=== PATIENT | female | born 1945 | race Caucasian/White ===

== ENCOUNTER 2016-11-03 10:18 | Emergency (ER) | payer OTHER ==
--- NOTE | 2016-11-03 11:03 | EKG Report ---
Test Performed on : 11/03/2016 10:50:29 AM Test Reason : Chest Pain Blood Pressure : / mmHG Vent. Rate : 071 BPM Atrial Rate : 072 BPM P-R Int : 000 ms QRS Dur : 092 ms QT Int : 424 ms P-R-T Axes : 000 007 053 degrees QTc Int : 460 ms Atrial fibrillation. Cannot rule out Anterior infarct (cited on or before 23-APR-2016) Abnormal ECG When compared with ECG of 23-APR-2016 07:00, Atrial fibrillation. has replaced Sinus rhythm. Vent. rate has decreased BY 50 BPM Unconfirmed Result
[2016-11-03 11:10] LABS: MANUAL DIFF NEEDED? NO
[2016-11-03 11:16] LABS: BASO% 0.5 % (0.0-0.8); EOS# 0.21 X1000 (0.0-0.7); EOS% 3.2 % (0.0-10.0); HEMATOCRIT 36.2 % (37.0-47.0); LYMPH# 1.75 X1000 (1.2-3.4); LYMPH% 26.7 % (20.5-51.1); MCH 28.2 PG (27-31); MCHC 33.1 g/dL (33-37); MCV 85.2 FL (81-99); MONO# 0.48 X1000 (0.11-0.59); MONO% 7.3 % (1.7-9.3); MPV 9.5 FL (7.4-10.4); NEUT% 62.3 % (42.2-75.2); PLT 237 X1000 (130-400); RBC 4.25 XMIL (4.2-5.4)
[2016-11-03 11:29] LABS: INR 0.92; PROTIME 9.4 Seconds (9.2-11.7); PTT 22.1 Seconds (22.0-36.0)
[2016-11-03 11:44] LABS: AGAP 7; ALBUMIN 3.8 g/dL (3.5-5.0); ALKALINE PHOSPHATASE 77 U/L (32-104); BUN 25 mg/dL (8-22); CALCIUM 9.3 mg/dL (8.8-10.2); CHLORIDE 96 mmol/L (98-107); CK PROFILE 56 U/L (24-173); COSMO 280; GOT 16 U/L (10-30); GPT 16 U/L (10-36); MAGNESIUM 1.7 mg/dL (1.5-2.7); POTASSIUM 3.6 mmol/L (3.5-5.1); SODIUM 136 mmol/L (136-145); TCO2 33 mmol/L (25-35); TOTAL BILIRUBIN 0.18 mg/dL (0.20-1.00); TOTAL PROTEIN 6.6 g/dL (6.3-8.3)
--- NOTE | 2016-11-03 11:53 | Diag Imaging Result Document ---
PROCEDURE NAME: CHEST-2 VIEWS - 11/03/2016 PA AND LATERAL RADIOGRAPH OF THE CHEST: COMPARISON: 04/23/2016. FINDINGS: The lungs are grossly clear. There is no discrete pleural fluid collection or evidence of pneumothorax. The cardiomediastinal silhouette and upper airway are grossly unremarkable. IMPRESSION: No evidence of acute chest pathology.
--- NOTE | 2016-11-03 14:42 | PROVIDER DOCUMENTATION ---
HPI-Chest Pain - General Source: patient - History of Present Illness-CP Location: reports: other (left anterior) Quality of Pain: reports: sharp Severity in ED: mild Onset/Duration: this morning Timing: gone now Aspirin Treatment Today: 81 mg x 1, provided at home Similar Symptoms Previously?: Yes Recently Seen Here or By Another Healthcare Provider: No <Armen Gongora - Last Filed: 11/03/16 16:56> <Kyle Blackburn - Last Filed: 11/03/16 16:57> - General Chief Complaint: Chest Pain Stated Complaint: chest pain Time Seen by Provider: 11/03/16 14:37 Allergies/Adverse Reactions: Patient Allergies Allergy/AdvReac Type Severity Reaction Status Date / Time codeine AdvReac VOMITING Verified 11/03/16 14:20 Home Medications: Home Medication List Medication Instructions Recorded Confirmed Last Taken Type Aspirin 325 mg PO DAILY 03/06/16 11/03/16 11/03/16 10:00 History Citalopram [Celexa] 20 mg PO DAILY 03/06/16 11/03/16 11/03/16 10:00 History Estrogens, Conjugated [Premarin] 0.625 mg PO HS 03/06/16 11/03/16 11/03/16 10: 00 History Losartan/Hydrochlorothiazide 1 each PO DAILY 03/06/16 11/03/16 11/03/16 10:00 History [Losartan-Hctz 100-12.5 mg Tab] Nortriptyline [Pamelor] 75 mg PO HS 03/06/16 11/03/16 11/03/16 10:00 History Potassium Chloride 10 meq PO DAILY 03/06/16 11/03/16 11/03/16 10:00 History Insulin Glargine [Lantus] 10 unit SUBQ QHS 04/23/16 11/03/16 11/02/16 22:00 History Insulin Glargine [Lantus] 22 unit SUBQ QAM 04/23/16 11/03/16 11/03/16 10:00 History Furosemide [Lasix] 20 mg PO DAILY #0 04/24/16 11/03/16 11/03/16 10:00 Rx Metoprolol [Lopressor] 75 mg PO BID #0 04/24/16 11/03/16 11/03/16 10:00 Rx - History of Present Illness-CP Nature of Presenting Problem: Presents with chf and afib with left anterior chest pain at 0930 this am resolved now but reports lasted 1 hours. States took rolaids with mild relief then resolved 1 hour later. Reports pain up left side of neck behind left ear and left side headache. Also reports resolved at this time. Denies sob, palpitations,n,v,. (Armen Gongoar) Review of Systems - Adult - REVIEW OF SYSTEMS - ADULT Constitutional: denies: chills, fever, fatique Eyes: reports: no symptoms reported Ears, Nose, Mouth & Throat: denies: ear pain, sinus problem, throat pain Cardiovascular: reports: chest pain. denies: irregular heart rate, orthopnea, syncope Respiratory: denies: cough, shortness of breath, wheezing Gastrointestinal: reports: no symptoms reported Genitourinary: reports: no symptoms reported Musculoskeletal: reports: no symptoms reported Integumentary: reports: no symptoms reported Neurological: reports: headache/migraines. denies: numbness, paresthesia, seizure Psychiatric: reports: no symptoms reported Endocrine: reports: no symptoms reported Hematologic/Lymphatic: reports: no symptoms reported Allergic/Immunologic: reports: no symptoms reported All Other Systems: Reviewed and Negative <Armen Gongora - Last Filed: 11/03/16 16:56> Past History - Adult - PAST MEDICAL HISTORY-ADULT Review of Records: reports: Nursing Assessment Review, Medications Reviewed Major Childhood Illnesses: reports: denies history Cardiovascular: reports: A-Fib, CHF, HTN, other (CHF) Musculoskeletal: reports: denies history Neurological: reports: denies history Psychiatric: reports: denies history - PRIOR SURGERIES/PROCEDURES Surgical/Procedure History: reports: cholecystectomy, hysterectomy, other ( thyroid nodule; ablation) - IMMUNIZATION STATUS Childhood Immunizations: See Nurse Assessment Flu Vaccine: See Nurse Assessment - SOCIAL HISTORY Smoking: denies Substance Use: none/never <Armen Gongora - Last Filed: 11/03/16 16:56> Physical Exam-General - PHYSICAL EXAM-ADULT Initial Vital Signs Reviewed: Yes - CONSTITUTIONAL General Appearance: appears well, alert, no apparent distress - EYES Eyes: PERRL/EOMI, pink conjunctivae - HEAD, EARS, NOSE, MOUTH & THROAT HENMT: moist mucous membranes, pharynx normal - NECK Neck: non-tender, full range of motion, supple, normal inspection - RESPIRATORY Respiratory: chest non-tender, lungs clear, normal breath sounds, no pleuratic chest pain, no respiratory distress, no accessory muscle use - CARDIOVASCULAR Cardiovascular: regular rate, rhythm, no edema, no gallop, no JVD, no murmur - GASTROINTESTINAL (ABDOMEN) Abdominal Exam: normal bowel sounds, non tender, soft, no organomegaly, no pulsatile mass - MUSCULOSKELETAL Extremity: normal range of motion, non-tender - SKIN Integumentary: normal color, normal turgor, warm/dry - PSYCHIATRIC Psych/Mental Status: normal mood/affect, normal thought content, normal thought process, oriented x 3 <Armen Gongora - Last Filed: 11/03/16 16:56> Progress - EKG 1 Time of EKG reading by physician:: 10:50 EKG Read and Signed by:: Kyle Blackburn EKG Interpretation (*Must complete 3 of following elements*): Abnormal Rate: 71 Rhythm: afib [place]: normal - XRAY 1 XRAY: Bilateral XRAY Study: Chest Impression: Normal XRAY Interpretation: no acute pathology <Armen Gongora - Last Filed: 11/03/16 16:56> <Kyle Blackburn - Last Filed: 11/03/16 16:57> - PLAN OF CARE/RESULTS Progress/Plan/Lab Results: Orders Category Date Time Status CHEST-2 VIEWS [RAD] Stat Exams 11/03/16 10:54 Completed CBC WITH ELECTRONIC DIFF [HEME] Stat Lab 11/03/16 10:57 Completed CK PROFILE [SP CHEM] Stat Lab 11/03/16 10:57 Completed CK PROFILE [SP CHEM] Stat Lab 11/03/16 14:37 Uncollected COMPREHENSIVE METABOLIC PANEL [CHEM] Stat Lab 11/03/16 10:57 Completed D-DIMER [CHEM] Stat Lab 11/03/16 10:57 Completed MAGNESIUM [CHEM] Stat Lab 11/03/16 10:57 Completed PRO B-NATRIURETIC PEPTIDE Stat Lab 11/03/16 10:57 Completed PROTIME WITH INR [COAG] Stat Lab 11/03/16 10:57 Completed PTT [COAG] Stat Lab 11/03/16 10:57 Completed TROPONIN T Stat Lab 11/03/16 10:57 Completed TROPONIN T Stat Lab 11/03/16 14:37 Uncollected EKG [EKG] Stat Ther 11/03/16 10:54 Draft EKG [EKG] Stat Ther 11/03/16 14:37 Ordered Vital Signs - 24 hr 11/03/16 10:52 Temperature 98.2 F Pulse Rate 73 Respiratory 18 Rate Blood Pressure 156/71 O2 Sat by Pulse 99 Oximetry Laboratory Tests 11/03/16 11/03/16 11/03/16 10:57 10:57 10:57 WBC 6.56 RBC 4.25 Hgb 12.0 Hct 36.2 L MCV 85.2 MCH 28.2 MCHC 33.1 RDW Std Deviation 13.4 Plt Count 237 MPV 9.5 Neut % (Auto) 62.3 Lymph % (Auto) 26.7 [place] % (Auto) 7.3 Eos % (Auto) 3.2 Baso % (Auto) 0.5 Neut # (Auto) 4.09 Lymph # (Auto) 1.75 [place] # (Auto) 0.48 Eos # (Auto) 0.21 Baso # (Auto) 0.03 PT INR PTT (Actin FS) D-Dimer 0.30 Sodium 136 Potassium 3.6 Chloride 96 L Carbon Dioxide 33 Anion Gap 7 BUN 25 H Creatinine 0.9 Estimated GFR/1.73 m2 > 60 BUN/Creatinine Ratio 28 Glucose 172 H Calculated Osmolality 280 Calcium 9.3 Magnesium 1.7 Total Bilirubin 0.18 L AST 16 ALT 16 Alkaline Phosphatase 77 Creatine Kinase 56 Troponin T Ima-V-Vtcethyrdxo Pept Total Protein 6.6 Albumin 3.8 Globulin 2.8 Albumin/Globulin Ratio 1.4 11/03/16 11/03/16 11/03/16 10:57 10:57 10:57 WBC RBC Hgb Hct MCV MCH MCHC RDW Std Deviation Plt Count MPV Neut % (Auto) Lymph % (Auto) [place] % (Auto) Eos % (Auto) Baso % (Auto) Neut # (Auto) Lymph # (Auto) [place] # (Auto) Eos # (Auto) Baso # (Auto) PT 9.4 INR 0.92 PTT (Actin FS) 22.1 D-Dimer Sodium Potassium Chloride Carbon Dioxide Anion Gap BUN Creatinine Estimated GFR/1.73 m2 BUN/Creatinine Ratio Glucose Calculated Osmolality Calcium Magnesium Total Bilirubin AST ALT Alkaline Phosphatase Creatine Kinase Troponin T < 0.010 Znc-T-Shytrlslesp Pept 184 Total Protein Albumin Globulin Albumin/Globulin Ratio Laboratory Tests 11/03/16 11/03/1611/03/17 10:57 10:57 10:57 WBC 6.56 RBC 4.25 Hgb 12.0 Hct 36.2 L MCV 85.2 MCH 28.2 MCHC 33.1 RDW Std Deviation 13.4 Plt Count 237 MPV 9.5 Neut % (Auto) 62.3 Lymph % (Auto) 26.7 [place] % (Auto) 7.3 Eos % (Auto) 3.2 Baso % (Auto) 0.5 Neut # (Auto) 4.09 Lymph # (Auto) 1.75 [place] # (Auto) 0.48 Eos # (Auto) 0.21 Baso # (Auto) 0.03 PT INR PTT (Actin FS) D-Dimer 0.30 Sodium 136 Potassium 3.6 Chloride 96 L Carbon Dioxide 33 Anion Gap 7 BUN 25 H Creatinine 0.9 Estimated GFR/1.73 m2 > 60 BUN/Creatinine Ratio 28 Glucose 172 H Calculated Osmolality 280 Calcium 9.3 Magnesium 1.7 Total Bilirubin 0.18 L AST 16 ALT 16 Alkaline Phosphatase 77 Creatine Kinase 56 Troponin T Wlj-L-Idbttxpcdcb Pept Total Protein 6.6 Albumin 3.8 Globulin 2.8 Albumin/Globulin Ratio 1.4 11/03/16 11/03/16 11/03/16 10:57 10:57 10:57 WBC RBC Hgb Hct MCV MCH MCHC RDW Std Deviation Plt Count MPV Neut % (Auto) Lymph % (Auto) [place] % (Auto) Eos % (Auto) Baso % (Auto) Neut # (Auto) Lymph # (Auto) [place] # (Auto) Eos # (Auto) Baso # (Auto) PT 9.4 INR 0.92 PTT (Actin FS) 22.1 D-Dimer Sodium Potassium Chloride Carbon Dioxide Anion Gap BUN Creatinine Estimated GFR/1.73 m2 BUN/Creatinine Ratio Glucose Calculated Osmolality Calcium Magnesium Total Bilirubin AST ALT Alkaline Phosphatase Creatine Kinase Troponin T < 0.010 Fyh-N-Ctnfyywbvuo Pept 184 Total Protein Albumin Globulin Albumin/Globulin Ratio 11/03/16 11/03/16 14:45 14:45 WBC RBC Hgb Hct MCV MCH MCHC RDW Std Deviation Plt Count MPV Neut % (Auto) Lymph % (Auto) [place] % (Auto) Eos % (Auto) Baso % (Auto) Neut # (Auto) Lymph # (Auto) [place] # (Auto) Eos # (Auto) Baso # (Auto) PT INR PTT (Actin FS) D-Dimer Sodium Potassium Chloride Carbon Dioxide Anion Gap BUN Creatinine Estimated GFR/1.73 m2 BUN/Creatinine Ratio Glucose Calculated Osmolality Calcium Magnesium Total Bilirubin AST ALT Alkaline Phosphatase Creatine Kinase 62 Troponin T < 0.010 Bko-G-Esqottqwhxd Pept Total Protein Albumin Globulin Albumin/Globulin Ratio (Armen Gongora) Departure - Departure Time of Disposition Order: 16:53 Certified Medical Emergency: Emergent <Armen Gongora - Last Filed: 11/03/16 16:56> - Departure Time of Disposition Order: 16:57 Certified Medical Emergency: Emergent <Kyle Blackburn - Last Filed: 11/03/16 16:57> - Departure DIAGNOSIS: Atypical chest pain Disposition: HOME 01 Condition: Stable Referrals: Dave Mcdaniel MD [Primary Care Provider] - Instructions: Nonspecific Chest Pain Attestation - Scribe Verification/Attestation Scribe:: Armen Gongora Acting as Scribe for:: Kyle Blackburn Scribe documention review:: This chart was documented by a scribe and accurately reflects the service the provider performed and the decisions made by the provider. <Armen Gongora - Last Filed: 11/03/16 16:56> Physician Attestation - Physician Attestation I, the provider, attest to the following statement:: Kyle Blackburn Physician documentation Attestation:: This documentation recorded by the scribe accurately reflects the service I personally performed and the decisions made by me. <Kyle Blackburn - Last Filed: 11/03/16 16:57>
--- NOTE | 2016-11-03 18:06 | Diag Imaging Result Document ---
PROCEDURE NAME: KNEE 3 VIEWS RIGHT - 11/03/2016 RIGHT KNEE THREE VIEWS: FINDINGS: No fracture. No dislocation. There are patella bone spurs and there is patellofemoral joint space narrowing. There is also bone spurring of the medial femoral condyle and medial tibial plateau. IMPRESSION: 1. No acute bony injury. 2. Mild arthritic changes.
[2016-11-03 18:23] VITALS: BP 166/93
== END 2016-11-03 18:23 | disposition home or self-care (01) ==
LOC: ED 10:18
DX: R07.89 Other chest pain (principal); R94.31 Abnormal electrocardiogram [ECG] [EKG]; M54.2 Cervicalgia; H92.02 Otalgia, left ear; R51 Headache; I48.91 Unspecified atrial fibrillation; I50.9 Heart failure, unspecified; I10 Essential (primary) hypertension; Z79.82 Long term (current) use of aspirin; Z79.4 Long term (current) use of insulin; Z79.899 Other long term (current) drug therapy
CPT/HCPCS: 71020; 80053; 82550; 83735; 83880; 84484; 85025; 85379; 85610; 85730; 93005; 99283

== ENCOUNTER 2018-12-25 11:52 | Inpatient (IN) ==
[2018-12-25 12:52] LABS: BE 8.7 mmoll (-2.0-2.0); BLOOD TYPE VENOUS; HCO3-(ACT) 29.6 mmoll (22-27); PCO2(98.6) 58 mmHg (40-60); PO2(98.6) 18 mmHg (30-55); SAMPLE BLOOD; SAO2 31.1 % (40.0-85.0)
[2018-12-25 13:07] LABS: BILIRUBIN URINE NEGATIVE (NEGATIVE); BLOOD URINE NEGATIVE (NEGATIVE); CLARITY CLEAR (CLEAR); COLOR YELLOW; GLUCOSE URINE NEGATIVE (NEGATIVE); KETONE URINE NEGATIVE (NEGATIVE); LEUKOCYTES URINE NEGATIVE (NEGATIVE); NITRITE URINE NEGATIVE (NEGATIVE); PH URINE 6.5; PROTEIN URINE NEGATIVE (NEGATIVE); UROBILINOGEN URINE NORMAL
[2018-12-25 13:16] LABS: BASO# 0.04 X1000 (0.0-0.2); BASO% 0.5 % (0.0-0.8); EOS# 0.25 X1000 (0.0-0.7); EOS% 3.2 % (0.0-10.0); HEMATOCRIT 37.9 % (37.0-47.0); HEMOGLOBIN 12.6 g/dL (12.0-16.0); IMM GRAN# 0.01 X1000 (0.0-0.04); IMM GRAN% 0.1 % (0.0-0.5); LYMPH# 1.83 X1000 (1.2-3.4); LYMPH% 23.6 % (20.5-51.1); MCH 27.3 PG (27-31); MCHC 33.2 g/dL (33-37); MONO# 0.64 X1000 (0.11-0.59); MONO% 8.2 % (1.7-9.3); MPV 10.1 FL (7.4-10.4); NEUT% 64.4 % (42.2-75.2); PLT 250 X1000 (130-400); RBC 4.62 XMIL (4.2-5.4); RDW 14.1 % (11.5-14.5); WBC 7.77 X1000 (4.8-10.8)
[2018-12-25 13:23] LABS: UR AMPHETAMINES QUAL NONE DETECTED (NONE DETECT); UR BARBITUATES QUAL NONE DETECTED (NONE DETECT); UR BENZODIAZEPIN QUAL PRESUMPTIVE POSITIVE (NONE DETECT); UR CANNABINOIDS QUAL NONE DETECTED (NONE DETECT); UR COCAINE QUAL NONE DETECTED (NONE DETECT); UR METHADONE QUAL NONE DETECTED (NONE DETECT); UR METHAMPHETAMINE QUAL NONE DETECTED (NONE DETECT); UR OPIATES QUAL NONE DETECTED (NONE DETECT); UR OXYCODONE QUAL NONE DETECTED (NONE DETECT); UR PCP QUAL NONE DETECTED (NONE DETECT); UR PROPOXYPHENE QUAL NONE DETECTED (NONE DETECT); UR TCA QUAL NONE DETECTED (NONE DETECT); URINE BACTERIA NEGATIVE /HFP; URINE CAST NONE SEEN /LPF; URINE CRYSTAL NONE SEEN /HPF; URINE EPITHELIAL CELLS <10 /HPF (<10); URINE RBC <10 /HPF (<10); URINE SOURCE CATH; URINE WBC <10 /HPF (<10); URINE YEAST NONE SEEN /HPF
[2018-12-25 13:31] LABS: AGAP 14; ALBUMIN 3.6 g/dL (3.5-5.0); ALKALINE PHOSPHATASE 86 U/L (32-104); BUN 18 mg/dL (8-22); CALCIUM 8.9 mg/dL (8.8-10.2); CHLORIDE 99 mmol/L (98-107); COSMO 284; CREATININE 0.8 mg/dL (0.5-0.9); ESTIMATED GFR > 60; GLUCOSE 80 mg/dL (70-104); GOT 23 U/L (10-30); GPT 16 U/L (10-36); POTASSIUM 3.5 mmol/L (3.5-5.1); SODIUM 142 mmol/L (136-145); TCO2 30 mmol/L (25-35); TOTAL PROTEIN 7.1 g/dL (6.3-8.3)
--- NOTE | 2018-12-25 13:47 | Diag Imaging Result Doc PS360 ---
EXAM : CT HEAD/C-SPINE W/O CONTRAST HISTORY: head injury/pain TECHNIQUE: 1. CT head without contrast 2. CT cervical spine without contrast COMPARISON: PET compared to 12/16/2018 FINDINGS: Head: No parenchymal hemorrhage. No epidural or subdural hematoma. No subarachnoid hemorrhage. There is atrophy of chronic microvascular ischemic changes. No mass identified on this noncontrasted exam. No hydrocephalus. No skull fracture. Cervical spine: Mild scoliosis. No precervical soft tissue swelling. No subluxation. No fracture. Mild degenerative spine changes. There is a large complex nodule containing calcification in the left lobe of the thyroid. IMPRESSION: Head: No hemorrhage. No injury. Cervical spine: No acute fracture. This exam was performed using automated exposure control, adjustment of mA or kV according to patient size, and/or use of iterative reconstruction technique. Electronically signed by Corbin Keith 12/25/2018 1:44 PM
--- NOTE | 2018-12-25 15:23 | PROVIDER DOCUMENTATION ---
This chart was entered by Andreina Chavis Scribe, acting as scribe for Tom Gongora MD. HPI-General Adult - General Chief Complaint: Altered Mental Status Stated Complaint: AMS/parasites Time Seen by Provider: 12/25/18 12:11 Source: patient, EMS (first response) Unable to obtain history due to:: altered Allergies/Adverse Reactions: Patient Allergies Allergy/AdvReac Type Severity Reaction Status Date / Time codeine AdvReac Intermediate VOMITING Verified 12/16/18 14:23 meperidine [From Demerol] AdvReac Intermediate NAUSEA/VOMI Verified 12/16/18 14:23 TING Home Medications: Home Medication List Medication Instructions Recorded Confirmed Last Taken Type Aspirin 81 mg PO DAILY 03/06/16 12/16/18 12/16/18 07:00 History Citalopram [Celexa] 20 mg PO DAILY 03/06/16 12/16/18 12/15/18 07:00 History Estrogens, Conjugated [Premarin] 0.625 mg PO HS 03/06/16 12/16/18 12/15/18 21:00 History Losartan/Hydrochlorothiazide 1 each PO DAILY 03/06/16 12/16/18 01/31/18 History [Losartan-Hctz 100-12.5 mg Tab] Potassium Chloride 10 meq PO DAILY 03/06/16 12/16/18 12/16/18 07:00 History Furosemide [Lasix] 40 mg PO DAILY 04/15/17 12/16/18 12/16/18 07:00 History Metoprolol [Lopressor] 50 mg PO BID 06/06/17 12/16/18 12/16/18 07:00 History Ranitidine [Zantac] 150 mg PO BID 06/06/17 12/16/18 12/16/18 07:00 History Insulin Glargine [Basaglar] 10 units SQ QHS 01/31/18 12/16/18 01/30/18 History Insulin Glargine [Basaglar] 22 units SQ QAM 01/31/18 12/16/18 12/16/18 07:00 History Albuterol Sulfate [Proair Hfa] 8.5 gm INHALATION PRN PRN 12/16/18 12/16/18 Unknown History Fluticasone/Salmet 100/50 INH 14 puff .SEE ORDER 12/16/18 Unknown History [Advair 100/50 Diskus] Meloxicam [Mobic] 15 mg PO QHS 12/16/18 12/16/18 Unknown History Solifenacin [Vesicare] 10 mg PO QHS 12/16/18 12/16/18 Unknown History - History of Present Illness -Gen Adult Nature of Presenting Problems: 73 yowf presents to the ed via ems (first response) from [facility]. pt is being sent to ed for AMS and sts pt has scabies and lice that [facility] has not been able to get rid of. pt on exam has mumbling speech and is not making since. pt does have a brief on and multiple brusises on rt elbow and left arm but full rom of both. PT'S ADULT SONE AND HER SISTER TELL ME PT HAS BEEN MILDLY SCHIOPHRENIC FOR >YEARS. RAPID DECLINE ING MENTAL FUNCTIONA ND INCREASE IN HALLUCINATIONS AND DELUTIONS PROGRESSIVELY WORSE OVER PAST THREE WEEKS AND EVEN WORSE PAST FEW DAYS. PT WAS KEEPING HER OWN HOUSE 1 MONTH AGO. NOW DOES NOT COMPREHEND PERSON, PLACE , SITUATION OR RESPOND TO VERBAL PROMPTS. Location of Pain/Injury: reports: none Pain Radiation: reports: no radiation Quality of Pain: reports: none Severity: reports: moderate (ams) Onset/Duration: reports: unsure Context/Activities at Onset: reports: light activity Modifying Factors: improves with: nothing Associated Symptoms: reports: headaches, other (ams). denies: back/neck pain, chest pain, cough, diarrhea, nausea, vomiting Review of Systems - Adult - REVIEW OF SYSTEMS - ADULT Constitutional: denies: chills, fever Eyes: reports: no symptoms reported Ears, Nose, Mouth & Throat: reports: no symptoms reported Cardiovascular: denies: chest pain, palpitations Respiratory: denies: shortness of breath, wheezing Gastrointestinal: denies: abdominal pain, diarrhea, nausea, vomiting Genitourinary: reports: see HPI, incontinence Musculoskeletal: reports: no symptoms reported Integumentary: reports: no symptoms reported Neurological: reports: see HPI, other (mumbling speech). denies: dizziness/vertigo, headache/migraines, seizure Psychiatric: reports: no symptoms reported Endocrine: reports: no symptoms reported Hematologic/Lymphatic: reports: no symptoms reported Allergic/Immunologic: reports: no symptoms reported All Other Systems: Reviewed and Negative Past History - Adult - PAST MEDICAL HISTORY-ADULT Review of Records: reports: Nursing Assessment Review, Medications Reviewed Major Childhood Illnesses: reports: denies history Cardiovascular: reports: A-Fib, CHF, HTN, other (CHF) Respiratory: reports: denies history Gastrointestinal: reports: denies history Obstetrical/Gynecological: reports: denies history Genitourinary: reports: denies history Musculoskeletal: reports: denies history Hand Dominance: Right Handed Neurological: reports: denies history Psychiatric: reports: denies history Endocrine/Immune: reports: denies history Other Conditions: reports: denies history - PRIOR SURGERIES/PROCEDURES Surgical/Procedure History: reports: cholecystectomy, hysterectomy, orthopedic (extremity), other (thyroid nodule; ablation) - IMMUNIZATION STATUS Childhood Immunizations: See Nurse Assessment Flu Vaccine: See Nurse Assessment - FAMILY HISTORY Family History: reviewed, not pertinent - SOCIAL HISTORY Smoking: denies Substance Use: denies Living Situation: care facility Physical Exam-General - PHYSICAL EXAM-ADULT Initial Vital Signs Reviewed: Yes - CONSTITUTIONAL General Appearance: alert, no apparent distress, obese - EYES Eyes: PERRL/EOMI, pink conjunctivae - HEAD, EARS, NOSE, MOUTH & THROAT HENMT: negative: moist mucous membranes (dry oral;) - NECK Neck: non-tender, full range of motion, normal inspection - RESPIRATORY Respiratory: chest non-tender, lungs clear, normal breath sounds - CARDIOVASCULAR Cardiovascular: normal peripheral pulses, regular rate, rhythm - CHEST (BREASTS) Chest/Breast: deferred - GASTROINTESTINAL (ABDOMEN) Abdominal Exam: normal bowel sounds, non tender, soft - GENITOURINARY Female Genitalia/Pelvic Exam: deferred Rectal Exam: deferred Hemoccult Exam: deferred - LYMPHATIC Lymphatic: no adenopathy - MUSCULOSKELETAL Back Exam: normal inspection, no CVA tenderness, no vertebral tenderness Extremity: normal range of motion, no calf tenderness, normal capillary refill, pelvis stable - SKIN Integumentary: normal color, normal turgor, warm/dry - PSYCHIATRIC Psych/Mental Status: disoriented x 3, other (mumbling speech) Progress - PLAN OF CARE/RESULTS Progress/Plan/Lab Results: Vital Signs - 8 hr 12/25/18 12:07 Pulse Rate 75 Respiratory Rate 18 Blood Pressure 183/90 Orders Category Date Time Status Dominguez Cath Insertion ORDERED Care 12/25/18 12:[address] HEAD/C-SPINE W/O CONTRAST [CT] Stat Exams 12/25/18 12:12 Ordered BLOOD CULTURE [BLDCUL] Stat Lab 12/25/18 12:13 Uncollected CBC WITH ELECTRONIC DIFF [HEME] Stat Lab 12/25/18 12:12 Uncollected COMPREHENSIVE METABOLIC PANEL [CHEM] Stat Lab 12/25/18 12:12 Uncollected FREE T4 Stat Lab 12/25/18 12:12 Uncollected LACTATE, PLASMA [CHEM] Stat Lab 12/25/18 12:12 Uncollected LACTATE, PLASMA [CHEM] Stat Lab 12/25/18 12:[address] W/POSS RFLX CULT [URINALYSIS] Stat Lab 12/25/18 12:12 Uncollected URINE DRUG SCREEN PL Stat Lab 12/25/18 12:12 Uncollected [address]ENOUS BLOOD GAS PL [RESP] Routine Lab 12/25/18 12:18 Ordered Result Diagrams: 12/25/18 12:32 12/25/18 12:32 - REASSESSMENT Reassessment #1 Time Reassessed: 14:06 Status: unchanged Reassessment #2 Time Reassessed: 15:36 Status: unchanged - CT/MRI 1 CT Study: Cervical Spine, Head Impression: See EMR Report (EXAM : CT HEAD/C-SPINE W/O CONTRAST HISTORY: head injury/pain TECHNIQUE: 1. CT head without contrast 2. CT cervical spine without contrast COMPARISON: PET compared to 12/16/2018 FINDINGS: Head: No parenchymal hemorrhage. No epidural or subdural hematoma. No subarachnoid hemorrhage. There is atrophy of chronic microvascular ischemic changes. No mass identified on this noncontrasted exam. No hydrocephalus. No skull fracture. Cervical spine: Mild scoliosis. No precervical soft tissue swelling. No sublu xation. No fracture. Mild degenerative spine changes. There is a large complex nodule containing calcification in the left lobe of the thyroid. IMPRESSION: Head: No hemorrhage. No injury. Cervical spine: No acute fracture. This exam was performed using automated exposure control, adjustment of mA or kV according to patient size, and/or use of iterative reconstruction technique. Electronically signed by Corbin Keith 12/25/2018 1:44 PM 12/25/18 1347 Interpreting Physician: Corbin Keith MD Dictated Date/Time: 12/25/18 1343 cc: Tom Gongora MD; Dave Mcdaniel MD) - CONSULTS/PCP/HOSPITALIST Notification #1 *Consult/PCP/Hospitalist*: hospitalist dr poole Time Discussed: 15:49 Consult Disposition: Admit #2 Consult: DR MITCHELL Time Discussed: 15:30 (CAN SEE IN CONSULTATION) Departure - Departure Date of Disposition Decision: 12/25/18 Time of Disposition Decision: 16:16 DIAGNOSIS: Encephalopathy, Dementia in other diseases classified elsewhere with behavioral disturbance, Schizoaffective disorder, Head lice Disposition: ADMITTED INPATIENT 09 Certified Medical Emergency: Emergent Condition: Stable Referrals and Follow-Ups: Dave Mcdaniel MD [Primary Care Provider] - - Critical Care Note This patient required my direct & personal management of CC.: Yes Total Time (mins): 30 Critical Care Statement: This patient required my direct personal management to treat or rule out processes, the absence of which, could potentiallly result in sudden, clinically significant life or limb threatening deterioration. Attestation - Physician/ J CARLOS Attestation Patient care was provided by Advanced Practice Provider:: No The physician spent face to face time with patient:: Yes Advanced Practice Provider documentation review:: Supervising physician onsite and consulted in the evaluation and care of this patient. The physician did have a face to face encounter with the patient. This chart was documented by the indicated scribe, (Andreina Chavis Scribe) and accurately reflects the services I performed and decisions made by me, Tom Gongora MD, as attested by the provider's signature.
[2018-12-25] MEDS ORDERED: TYLENOL PO PRN (16:57)
[2018-12-25] MEDS ORDERED: NS 1,000 ML IV ONE (16:57)
[2018-12-25] MEDS ORDERED: MISC. PHARMACY COMMUNICATION SCH (17:45)
[2018-12-25 18:13] LABS: ACETAMINOPHEN < 1.2 ug/mL (10-30); SALICYLATES < 3.00 mg/dL (3-10)
[2018-12-25 18:14] LABS: BE 8.2 mmoll (-3.0-3.0); BLOOD TYPE ARTERIAL; HCO3-(ACT) 31.3 mmoll (20.0-26.0); METHB 1.2 % (0.0-1.5); O2(CT) 17.2 mL/dL (15.0-23.0); O2HB 94.4 % (95.0-99.0); PCO2(98.6) 40 mmHg (35-45); PO2(98.6) 74 mmHg (60-100); SAMPLE BLOOD; SAO2 97.5 % (95.0-100.0); THB 12.9 g/dL (11.5-17.4); pH(98.6) 7.51 (7.35-7.45)
[2018-12-25 18:21] LABS: ALLEN TEST NO; MODALITY ROOM AIR
--- NOTE | 2018-12-25 18:34 | Diag Imaging Result Doc PS360 ---
EXAM: CHEST-PORTABLE INDICATION: encephalopathy TECHNIQUE: One view COMPARISON: 12/16/2018 FINDINGS: The lungs are grossly clear. There is no discrete pleural fluid collection or pneumothorax. The cardiomediastinal silhouette and central vasculature are grossly unremarkable. IMPRESSION: No evidence of acute pathology by plain radiograph. Electronically signed by Waqar Orozco 12/25/2018 6:32 PM
[2018-12-25 20:15] LABS: CK INDEX 1.3 (0.0-2.5); CK-MB 5.95 ng/mL (0.0-5.0)
--- NOTE | 2018-12-25 20:23 | HISTORY AND PHYSICAL ---
PRIMARY CARE PROVIDER: Unknown. CHIEF COMPLAINT: Worsening encephalopathy. HISTORY OF PRESENT ILLNESS: Mrs. uNnez is a 73-year-old female who currently is a resident at [facility], being treated for major neurocognitive disorder, Alzheimer's, psychotic disorder with hallucinations, generalized anxiety disorder, and insomnia. Per the family, who is at the bedside, over the past at least one to two years, if not longer, she has had progressively worsening paranoia with auditory and visual hallucinations. She lives at home by herself in [place] [facility] and often believes that she is being followed or people are coming into the home or she sees bugs on the wall. She was admitted to [facility] on 12/17/2018 and, per reports, she has become progressively more obtunded since that time, more lethargic with periods of anxiety, confusion, and paranoia. Today, at [facility] she stood up, fell, and hit her head and it was felt that she would need to come over to the ER for evaluation for possible head injury. Ultimately, it was also felt that the change in her neurocognitive status has been acute and difficult to explain only by her psychiatric symptoms. Head CT and all laboratory data done in the ER is unremarkable. It is felt that she will need a neurologic evaluation, which will be done at [facility]. Currently, the patient is asleep and very difficult to arouse. She is confused with incomprehensible speech, however she does follow commands. It is also noted that the patient lives at home in [place] [facility] and is currently being treated for lice and for scabies. She will be admitted to the hospitalist service and transferred to [facility]. PAST MEDICAL HISTORY: 1. Current inpatient at [facility] for dementia with behavioral disturbance, psychotic disorder with hallucinations, anxiety, and insomnia. 2. Diabetes mellitus requiring insulin. 3. Hypertension. 4. Report of congestive heart failure. 5. Diabetic neuropathy. 6. History of DVT. 7. Cardiac arrhythmia, possibly atrial fibrillation, status post ablation x2. 8. Overactive bladder. 9. GERD. 10.Asthma. PAST SURGICAL HISTORY: Cholecystectomy, hysterectomy, cardioversion/ablation x2, and right knee replacement. SOCIAL HISTORY: She lives alone. No tobacco, alcohol or drug use, per son and sister who are at the bedside. HOME MEDICATIONS: ProAir HFA 8.5 grams inhaled every four to six hours as needed, aspirin 81 mg daily, Celexa 20 mg daily, Premarin 0.625 mg p.o. at bedtime, Advair 100/50 one puff inhaled b.i.d., Lasix 40 mg daily, Basaglar 10 units at bedtime and 22 units subcutaneously in the a.m., losartan/hydrochlorothiazide 100/12.5 one daily, Mobic 15 mg at bedtime, metoprolol 50 mg p.o. b.i.d., potassium chloride 10 mEq p.o. daily, Zantac 150 mg p.o. b.i.d., VESIcare 10 mg at bedtime. REVIEW OF SYSTEMS: Unable to obtain. ALLERGIES: Codeine and meperidine. PHYSICAL EXAMINATION: VITAL SIGNS: Blood pressure 183/90; heart rate 75; respiratory rate 18; 02 saturation 100% on room air; temperature 97 degrees Fahrenheit. GENERAL: Morbidly obese and disheveled female lying in the hospital bed, obtunded. NEUROLOGICAL: The patient is obtunded. She does grimace to painful stimulus. Will not open her eyes, almost intentionally. She will follow commands with no focal deficits, however she is unable to complete tasks such as random alternating movements, shoulder shrug, [id number], etc. HEENT: She has some ecchymosis over her right eyebrow, otherwise atraumatic and normocephalic. Her pupils are equal, but sluggish to light response bilaterally. Oral mucosa is extremely dry. NECK: Trachea is midline. There is no JVD. CHEST: Clear to auscultation. CARDIOVASCULAR: Regular rate and rhythm. S1 and S2 are noted. No audible murmurs. GASTROINTESTINAL: Soft, nondistended and nontender. Bowel sounds are active. EXTREMITIES: There is no edema. Pulses 1+ bilaterally. DIAGNOSTIC DATA: Head CT is negative. Chest x-ray and EKG are pending. WBC 7.77, hemoglobin 12.6, hematocrit 37.9, platelet count 250,000. Venous blood gas: pH 7.4, CO2 58, O2 18, bicarbonate 29.6. Sodium 142, potassium 3.5, chloride 99, C02 30, anion gap 14, BUN 18, creatinine 0.8, glucose 80, calcium 8.9. LFTs negative. Albumin 3.6. Free T4 1.32. UA is negative. Toxicology is positive for benzodiazepines. ASSESSMENT AND PLAN: 1. Acute encephalopathy. Unclear as to the etiology. There does not appear to be any apparent metabolic reasons for her lethargy. Head CT is negative and her vitals are stable. She has had fairly thorough metabolic testing done already. When she first arrived on 12/17/2018 she had TSH, T4, and T3 all found to be negative. Her folate was greater than 40. B12 was within normal limits. Liver function tests were normal. Her hemoglobin A1c was 7.2%. She will need neurologic evaluation. Will order an MRI and EEG. There is also a strong possibility that this is all due to psychiatric effect with new changes in her psychiatric medications. So, we will go ahead and hold most psych medications, add p.r.n. for severe agitation. 2. LICE and SCABIES: She has been receiving topical treatments at [facility] that seems to be ineffective. We will transition to PO ivermectin 200mcg/kg. This will cover both lice and scabies. We will also add topical permetherin in addition. 3 Diabetes mellitus. Will add patterned sugars sliding scale insulin. Hemoglobin A1c 7.2%. Will hold off on her home insulin until we know she can eat safely. 4. History of congestive heart failure. On physical exam the patient has no evidence of congestive heart failure. An echocardiogram done in 2015 showed excellent left ventricular systolic function and probable normal diastolic function, so would question the actual diagnosis of congestive heart failure. However, we are checking a chest x- ray and EKG and trending cardiac enzymes. 5. Volume depletion. The patient is extremely dry on physical exam. Will add intravenous fluids. Hold any diuretics. 6. History of cardiac arrhythmia. Unclear as to the actual arrhythmia, possibly atrial fibrillation. We are checking an EKG and will follow telemetry and enzymes. 7. Hypertension. Will continue home medications once reconciled. Deep venous thrombosis prophylaxis with Lovenox. Critical care time with this patient is greater than one hour. Dictated by YAHAIRA Huber for Uziel Farias MD cc: YAHAIRA Huber MD [facility]
[2018-12-25] MEDS ORDERED: HUMULIN R (PARKWAY) SUBQ SCH (21:00)
[2018-12-25] MEDS: HUMULIN R SUBQ SCH (22:22)
--- NOTE | 2018-12-25 23:51 | HISTORY AND PHYSICAL ---
ADDENDUM: Patient seen examined by myself. Full note dictated and discussed with nurse practitioner. Patient has a longstanding history of psychiatric illness. However, according to the family over the past 2 to 3 weeks she has had continuing worsening of hallucinations and delusions. Currently, she is in no respiratory distress, but does not respond to commands nor answer questions. We will admit her to the hospital, treat her for scabies. We will attempt to obtain an MRI as well as an EEG of her brain. We will get consultation from Neurology and we will follow. cc: Uziel Farias MD
[2018-12-26] MEDS: ELIMITE 5% CREAM TOP SCH (00:34)
[2018-12-26 01:33] LABS: CK INDEX 1.2 (0.0-2.5); CK-MB 4.25 ng/mL (0.0-5.0)
[2018-12-26] MEDS: TYLENOL PO PRN ×2 (04:22→22:59)
[2018-12-26] MEDS: HUMULIN R SUBQ SCH ×4 (06:23→23:01)
[2018-12-26 07:42] LABS: BASO# 0.02 X1000 (0.0-0.2); BASO% 0.3 % (0.0-0.8); EOS# 0.22 X1000 (0.0-0.7); EOS% 3.3 % (0.0-10.0); HEMATOCRIT 37.7 % (37.0-47.0); HEMOGLOBIN 12.2 g/dL (12.0-16.0); LYMPH# 1.68 X1000 (1.2-3.4); LYMPH% 25.3 % (20.5-51.1); MCH 26.9 PG (27-31); MCHC 32.4 g/dL (33-37); MONO# 0.62 X1000 (0.11-0.59); MONO% 9.3 % (1.7-9.3); MPV 10.2 FL (7.4-10.4); NEUT# 4.11 X1000 (1.4-6.5); NEUT% 61.8 % (42.2-75.2); PLT 246 X1000 (130-400); RBC 4.54 XMIL (4.2-5.4); RDW 14.4 % (11.5-14.5); WBC 6.65 X1000 (4.8-10.8)
[2018-12-26 08:10] LABS: AGAP 13; BUN 15 mg/dL (8-22); CHLORIDE 101 mmol/L (98-107); COSMO 287; CREATININE 0.8 mg/dL (0.5-0.9); ESTIMATED GFR > 60; GLUCOSE 88 mg/dL (70-104); POTASSIUM 3.4 mmol/L (3.5-5.1); SODIUM 144 mmol/L (136-145); TCO2 30 mmol/L (25-35)
[2018-12-26] MEDS: NON-FORMULARY MED PO SCH (10:05)
[2018-12-26] MEDS ORDERED: LINDANE TOP ONE (10:23)
--- NOTE | 2018-12-26 11:06 | PROGRESS NOTE ---
DATE: 12/26/2018 SUBJECTIVE: This morning, Ms. Nunez was being assisted by the nurse and the nurse news assistant. She looks remarkably well. She denies any new complaints. She is more alert and conversational. OBJECTIVE: Current Vital Signs: Blood pressure is currently 181/52, pulse is 70, respirations 16, temperature 97.8 degrees. General: Ms. Nunez is a 73-year-old female. She is in bed. She is not in any cardiopulmonary distress. HEENT: Mucosa is pink, slightly dry. Anicteric. Acyanotic. Neck: Supple. Chest: Clear to auscultation. No crepitations. No rhonchi. Cardiovascular: Regular rate and rhythm. No murmurs, no rubs, no gallops. GI: Abdomen is soft, nontender. Extremities: No pedal edema. PLATEN DRIER OPERATOR: The patient is awake, alert, oriented to person and to place, disoriented to time, but the patient follows command. Psychiatric: The patient is calm. She is cooperative. Denies any hallucinations. Skin and Hair: There are a lot of lice seen. LABORATORY DATA: CBC is completely normal. Chemistry is also completely normal, except for potassium of 3.4. ASSESSMENT: 1. Altered mental status on presentation. Etiology is unclear. Initial CT scan is unremarkable. The patient's mentation is back to normal. There is a plan for MRI, which we will follow up on that result. There is also a consult for Neurology. 2. Head lice and body lice with scabies. The patient has been started on permethrin cream. Will also do Lindane shampoo and go from there. 3. Clinical volume depletion. The patient looks remarkably dry. We will continue with baseline intravenous fluids. 4. History of sinus arrhythmia and occasional junctional rhythms noted. 5. Recently diagnosed psychotic disorder with delusions and hallucinations. The patient was admitted to [facility]. She is currently not on any antipsychotic medication. She seems to be doing remarkably well. 6. Status post mechanical fall. Cervical spine and head CT was unremarkable for any acute fracture, and the patient denies any complaints. Today, we are going to continue with gentle hydration. We will apply the Lindane shampoo, and continue with the permethrin topical use. Will get Physical Therapy to evaluate Ms. Nunez, and follow up with her other investigations pending. cc: Felipe Ferrara MD
--- NOTE | 2018-12-26 14:25 | CONSULTATION ---
DATE OF CONSULTATION: 12/26/2018 HISTORY: Ms. Nunez is 73 years old, and she has had recent increased psychosis. There is reported long-standing dementia. She was at [facility] for about a week. By report, she stood, fell, and had possible head injury. She was transferred to [facility] yesterday. Workup has been unremarkable. There is moderately elevated blood sugar. Otherwise, chemistry was okay. Urine drug screen was positive only for benzodiazepines consistent with her administered medicines. Valproic acid level was 71.4 (VPA level on admission was 25). She has been afebrile. Heart rate has been stable. Blood pressure has been stable 120s-180s. Noncontrast CT of the head yesterday shows typical age-related changes but, no bleeding, nothing focal or acute. PHYSICAL EXAMINATION: On exam now, Ms. Nunez is supine, awake, alert, and attentive. She answered questions appropriately. When not vigorously involved in conversation, she seemed to be asleep. She was oriented to [facility], 2019, and [employer]. She stated the month to be late November. Speech is a little bit dysarthric but easily understood. I did not test her cognitive function further. Language function is intact on bedside testing of repeating, naming, comprehension, fluency. I did not test reading or handwriting. She has no skull defect. Neck shows no meningismus. Extraocular movements are full. Visual jamil are full. Facial motility is symmetric. She has symmetric tone in the limbs. She did well on [id number] testing bilaterally. She has good power in the arms and legs. She reports symmetric pinprick appreciation on brief testing over the hands. I did not test her gait. Reflexes are absent at the ankles and 1+ symmetrically at the wrists. Plantar response is silent bilaterally. IMPRESSION: 1. Recent possible altered awareness, possibly obtunded, not clear that she had a new neurologic event. I do not see evidence of stroke, seizure, other acute primary GOVERNMENT AFFAIRS SPECIALIST problems. She seems improved today, which may be the result of reduction in medication. 2. Reported baseline dementia. This would predispose her to encephalopathy with any toxic or metabolic disturbance. I am not sure about prior cholinesterase inhibitor trial. We might reassess her cognitive function when the psychiatric problems are stable, and then consider cholinesterase inhibitor if indicated. 3. She has clinical evidence of peripheral neuropathy, presumed diabetic neuropathy. I do not think this needs urgent attention. I do not have any urgent suggestion right now. She seems improved since last night. I would continue current management, and hope she can return to [facility] soon. Thanks for asking Neurology to see Ms. Nunez. cc: MD KHURRAM Burton III
--- NOTE | 2018-12-26 14:45 | Diag Imaging Result Doc PS360 ---
MRI BRAIN W/WO CONTRAST - 12/26/2018 INDICATION: acute encephalopathy COMPARISON: CT from 12/25/2018 FINDINGS: There is no area of restricted diffusion. No intracranial mass or hemorrhage. The ventricles and sulci are normal in size and contour. There are some trace areas of subcortical and deep cerebral white matter hyperintensity bilaterally. There is moderate patient motion artifact. There is no abnormal contrast enhancement. There is fluid filling all of the right-sided mastoids compatible with mastoiditis. IMPRESSION: 1. Minimal cerebral white matter hyperintensities. No acute disease. 2. Right sided mastoiditis. Electronically signed by Horace Bhatia 12/26/2018 2:43 PM
[2018-12-26] MEDS: D5 1/2 NS + KCL 20 MEQ 1,000 ML IV SCH (17:07)
[2018-12-27] MEDS: ELIMITE 5% CREAM TOP SCH (01:33)
[2018-12-27] MEDS: HUMULIN R SUBQ SCH ×2 (06:53→11:29)
[2018-12-27] MEDS: TYLENOL PO PRN (06:59)
[2018-12-27 07:02] LABS: BASO# 0.03 X1000 (0.0-0.2); BASO% 0.6 % (0.0-0.8); EOS% 3.7 % (0.0-10.0); HEMATOCRIT 36.2 % (37.0-47.0); HEMOGLOBIN 11.7 g/dL (12.0-16.0); LYMPH# 1.47 X1000 (1.2-3.4); LYMPH% 27.3 % (20.5-51.1); MCHC 32.3 g/dL (33-37); MCV 83.6 FL (81-99); MONO# 0.65 X1000 (0.11-0.59); MONO% 12.1 % (1.7-9.3); MPV 10.1 FL (7.4-10.4); NEUT# 3.03 X1000 (1.4-6.5); NEUT% 56.3 % (42.2-75.2); PLT 225 X1000 (130-400); RBC 4.33 XMIL (4.2-5.4); RDW 14.3 % (11.5-14.5); WBC 5.38 X1000 (4.8-10.8)
[2018-12-27 07:29] LABS: AGAP 12; BUN 13 mg/dL (8-22); CALCIUM 8.8 mg/dL (8.8-10.2); CHLORIDE 101 mmol/L (98-107); COSMO 285; CREATININE 0.7 mg/dL (0.5-0.9); ESTIMATED GFR > 60; GLUCOSE 191 mg/dL (70-104); POTASSIUM 3.3 mmol/L (3.5-5.1); SODIUM 140 mmol/L (136-145); TCO2 27 mmol/L (25-35)
[2018-12-27] MEDS: D5 1/2 NS + KCL 20 MEQ 1,000 ML IV SCH (08:14)
[2018-12-27] MEDS ORDERED: POTASSIUM CHLORIDE 20% LIQUID PO ONE (08:29)
[2018-12-27] MEDS: NON-FORMULARY MED PO SCH (11:27)
[2018-12-27] MEDS ORDERED: ADVAIR 100/50 DISKUS PRN (11:29)
[2018-12-27 12:22] LABS: HEMOGLOBIN A1C 6.9 % (4.8-6.0)
--- NOTE | 2018-12-27 15:13 | PROGRESS NOTE ---
DATE: 12/27/2018 Ms. Nunez continues awake, alert, bright and attentive. She is markedly improved compared to admission. She answered questions regarding orientation correctly. Speech and language function are intact. I did not test her cognitive function. Son at the bedside reports problems with delusions, hallucinations, psychosis. She had fairly abrupt exacerbation with those problems prompting recent hospitalization. She does not appear psychotic now. I do not have any new suggestion. I would continue to try to manage with the least amount of MEDICAL ASSISTANT INSTRUCTOR active medicines that will keep her psychosis under control. Again, we might consider later elective outpatient cognitive testing and cholinesterase inhibitor trial. Discussed possibility with the son that the cholinesterase inhibitor might help cognitive function, and we might see less delusional behavior. Thanks for asking Neurology to see Ms. Nunez. cc: MD KHURRAM Burton III
[2018-12-27 15:41] VITALS: BP 147/70
[2018-12-27] MEDS ORDERED: VESICARE PO SCH (21:00)
[2018-12-27] MEDS ORDERED: ZANTAC PO SCH (21:00)
[2018-12-27] MEDS ORDERED: LANTUS INSULIN SUBQ SCH (21:00)
[2018-12-27] MEDS ORDERED: LOPRESSOR PO SCH (21:00)
--- NOTE | 2018-12-28 08:29 | DISCHARGE SUMMARY ---
ADMISSION DATE: 12/25/2018 DISCHARGE DATE: 12/27/2018 DISPOSITION: [facility]. CONSULTATIONS DURING THIS ADMISSION: Neurology was consulted. Patient was seen by Dr. Christensen. INVASIVE PROCEDURES DONE DURING THIS ADMISSION: None. IMAGING STUDIES OF SIGNIFICANCE: A CT scan of the head and cervical spine showed no acute fracture. There was no hemorrhage and no acute injury. A chest x-ray showed no evidence of acute pathology. An MRI of the brain showed minimal cerebral white matter hyperintensity. No acute disease. There was a right-sided mastoiditis. DIAGNOSES AT THE TIME OF ADMISSION: 1. Acute encephalopathy. 2. Lice and scabies. 3. Diabetes mellitus. 4. History of congestive heart failure. DIAGNOSES AT THE TIME OF DISCHARGE: 1. Altered mental status on presentation with normal MRI and CT scan. Presumably, this was medication induced. 2. Head lice and body lice with scabies, treated. 3. Clinical volume depletion, improved. 4. History of sick sinus syndrome. 5. Status post mechanical fall at [facility]. 6. Recently diagnosed psychotic disorder with delusions and hallucinations. The patient was admitted to [facility]. Currently, she does not have any psychotic behavior. 7. Diabetes mellitus, with presenting A1c of 6.9. 8. Left mastoiditis on MRI. Patient is on antibiotics. DISCHARGE MEDICATIONS: 1. Citalopram 20 mg p.o. daily. 2. Aspirin 81 mg daily. 3. Furosemide 40 mg daily. 4. Metoprolol 50 mg b.i.d. 5. Zantac 150 b.i.d. 6. Albuterol inhaler p.r.n. 7. Losartan/hydrochlorothiazide. 8. Augmentin 875 b.i.d. 9. Permethrin cream. 10. Insulin glargine 10 units subcutaneously in the morning. PRESENTING COMPLAINT: Worsening encephalopathy. HISTORY OF PRESENTING COMPLAINT: Ms. Nunez is a 73-year-old female who was recently admitted to [facility] because of acute onset of delusions and hallucinations. Apparently at the facility, the patient became more altered and fell. It was decided that she come to the emergency room for medical evaluation. Ms. Nunez was initially seen at [facility] where she was transferred to [facility] for higher level of care. HOSPITAL COURSE: Ms. Nunez was admitted and was adequately hydrated. Obviously, her antipsychotic medications were withheld. Her mentation improved. Yesterday, by the time I saw her, she was interacting well. She did not show any signs of hallucinations or psychosis. She has been started on Augmentin because of mastoiditis that was mentioned on an MRI. The patient was seen by Neurology yesterday and today as well. There are no new recommendations. They think the medication could have caused her altered mentation. This morning, I spoke extensively with the son and made him aware that from a medical standpoint, Ms. Nunez will be discharged, and that she is currently not psychotic. However, if she needs to go back to [facility], I would be okay with that, and he also said that would be his plan. Ms. Nunez is currently medically stable for discharge to [facility]. At the time of the dictation, her vitals show a blood pressure of 147/70, pulse of 90, respirations 16, temperature 98.3 degrees. Physical exam today is unremarkable. Her hydration status has significantly improved. She is therefore stable for discharge back to [facility]. TIME SPENT FOR DISCHARGE: 33 minutes. ADDENDUM: I have just been called by the nurse that the son has changed his mind. He does not want the mother to go back to [facility]. From a medical standpoint, we think Ms. Nunez will be okay going home once the home situation is arranged. cc: MD Dr. Fermin Suero Dr.
[2018-12-28] MEDS ORDERED: HYZAAR 50/12.5 MG PO SCH (09:00)
[2018-12-28] MEDS ORDERED: ASPIRIN EC PO SCH (09:00)
[2018-12-28] MEDS ORDERED: CELEXA PO SCH (09:00)
[2018-12-28] MEDS ORDERED: INSULIN GLARGINE 22 UNIT SQ SCH (09:00)
--- NOTE | 2018-12-30 09:04 | EEG REPORT ---
DATE: 12/25/2018 EEG #: [id number] COMMENT: This is a digitally recorded EEG on a 73-year-old patient with reported baseline dementia, psychosis, recent fall, question of syncope or seizure. FINDINGS: During waking, medium and higher amplitude 10 hertz posterior rhythm is present symmetrically and reacts normally to eye opening. Background contains polymorphic and rhythmic theta frequencies over the frontal and central regions symmetrically. Drowsing occurred with appearance of more generalized slowing. Stage 2 sleep was not recorded. Photic stimulation did not alter the record. Hyperventilation was not done. No definite epileptiform discharge was identified. INTERPRETATION: Normal EEG. CORRELATION: The background theta is considered abundant and just within acceptable limit for normal. There is nothing on this record to suggest the presence of a seizure disorder. cc: MD Raul Burton III, CRNP
[2019-01-02] MEDS ORDERED: NON-FORMULARY MED PO SCH (09:00)
[2019-01-03] MEDS ORDERED: ELIMITE 5% CREAM TOP SCH (21:00)
[2019-01-09] MEDS ORDERED: NON-FORMULARY MED PO SCH (09:00)
== END 2018-12-27 18:33 | disposition home health service (06) | DRG 92 ==
LOC: P.ED 11:52 → 4N 11:53 → SUATTDRO 11:53 → 4N 17:26
PROVIDERS: ATTEND Internal Medicine
CPT/HCPCS: 51702; 70450; 70553; 71010; 71045; 72125; 80048; 80053; 80104; 80164; 80165; 80196; 80301; 80305; 80307; 80324; 80329; 81001; 82003; 82140; 82550; 82553; 82805; 82948; 83036; 83605; 83735; 84439; 84484; 85025; 87040; 93005; 95816; 97110; 97116; 97163; 99285; A9270; A9579; G0431; G0434; G0477; G0480; G6038; G6039; J3480; J7030; XXXXX

== ENCOUNTER 2019-02-21 11:28 | Inpatient (IN) ==
[2019-02-21] MEDS ORDERED: NITROGLYCERIN TOP ONE (12:10)
[2019-02-21] MEDS ORDERED: VASOTEC IV ONE (12:10)
[2019-02-21 12:12] LABS: BASO# 0.02 X1000 (0.0-0.2); BASO% 0.3 % (0.0-0.8); EOS# 0.11 X1000 (0.0-0.7); EOS% 1.8 % (0.0-10.0); HEMATOCRIT 36.4 % (37.0-47.0); HEMOGLOBIN 12.2 g/dL (12.0-16.0); LYMPH# 1.51 X1000 (1.2-3.4); LYMPH% 24.6 % (20.5-51.1); MCH 26.8 PG (27-31); MCHC 33.5 g/dL (33-37); MONO# 0.37 X1000 (0.11-0.59); MPV 9.4 FL (7.4-10.4); NEUT# 4.14 X1000 (1.4-6.5); NEUT% 67.3 % (42.2-75.2); PLT 209 X1000 (130-400); RBC 4.55 XMIL (4.2-5.4); RDW 13.7 % (11.5-14.5); WBC 6.15 X1000 (4.8-10.8)
[2019-02-21 12:20] LABS: INR 0.89; PROTIME 12.7 Seconds (11.0-16.0)
[2019-02-21 12:21] LABS: PTT 25.1 Seconds (22.3-41.8)
--- NOTE | 2019-02-21 12:24 | Diag Imaging Result Doc PS360 ---
EXAM: CHEST-2 VIEWS HISTORY: CHEST PAIN TECHNIQUE: Chest two views COMPARISON: 12/25/2018 FINDINGS: The lungs are well expanded. The heart is not enlarged. The vessels are not distended. There are no infiltrates. No pleural effusions. IMPRESSION: No acute abnormality. Electronically signed by Corbin Keith 02/21/2019 12:22 PM
[2019-02-21 12:29] LABS: AGAP 15; ALB/GLOB RATIO 1.7; ALBUMIN 4.2 g/dL (3.5-5.0); ALKALINE PHOSPHATASE 67 U/L (32-104); BUN 18 mg/dL (8-22); CALCIUM 10.6 mg/dL (8.8-10.2); CHLORIDE 95 mmol/L (98-107); COSMO 282; CREATININE 0.9 mg/dL (0.5-0.9); ESTIMATED GFR > 60; GLUCOSE 136 mg/dL (70-104); POTASSIUM 3.6 mmol/L (3.5-5.1); SODIUM 139 mmol/L (136-145); TCO2 29 mmol/L (25-35); TOTAL BILIRUBIN 0.46 mg/dL (0.20-1.00); TOTAL PROTEIN 6.7 g/dL (6.3-8.3)
[2019-02-21 12:30] LABS: CK PROFILE 89 U/L (24-173); GOT 14 U/L (10-30); GPT 11 U/L (10-36)
[2019-02-21] MEDS ORDERED: APRESOLINE IV ONE (13:04)
--- NOTE | 2019-02-21 13:10 | EKG Report ---
Test Performed on : 02/21/2019 11:48:00 AM Test Reason : CHEST PAIN Blood Pressure : / mmHG Vent. Rate : 056 BPM Atrial Rate : 056 BPM P-R Int : 140 ms QRS Dur : 080 ms QT Int : 452 ms P-R-T Axes : 066 002 054 degrees QTc Int : 436 ms Sinus bradycardia. Otherwise normal ECG When compared with ECG of 21-FEB-2019 11:18, (Unconfirmed) Sinus rhythm. has replaced Wide QRS rhythm. Unconfirmed Result
[2019-02-21] MEDS ORDERED: TYLENOL PO ONE (13:22)
--- NOTE | 2019-02-21 13:29 | PROVIDER DOCUMENTATION ---
This chart was entered by Sandy Monaco Scribe, acting as scribe for Gualberto Mcelroy MD. HPI-Chest Pain - General Chief Complaint: Chest Pain Stated Complaint: CHEST PAIN Time Seen by Provider: 02/21/19 11:55 Source: patient Allergies/Adverse Reactions: Patient Allergies Allergy/AdvReac Type Severity Reaction Status Date / Time codeine AdvReac Intermediate VOMITING Verified 02/21/19 13:25 meperidine [From Demerol] AdvReac Intermediate NAUSEA/VOMI Verified 02/21/19 13:25 TING Home Medications: Home Medication List Medication Instructions Recorded Confirmed Last Taken Type Aspirin 81 mg PO DAILY 03/06/16 12/27/18 12/16/18 07:00 History Citalopram [Celexa] 20 mg PO DAILY 03/06/16 12/27/18 12/15/18 07:00 History Potassium Chloride 10 meq PO DAILY 03/06/16 12/27/18 12/16/18 07:00 History Furosemide [Lasix] 40 mg PO DAILY 04/15/17 12/27/18 12/16/18 07:00 History Metoprolol [Lopressor] 50 mg PO BID 06/06/17 12/27/18 12/16/18 07:00 History Ranitidine [Zantac] 150 mg PO BID 06/06/17 12/27/18 12/16/18 07:00 History Albuterol Sulfate [Proair Hfa] 8.5 gm INHALATION PRN PRN 12/16/18 12/27/18 Unknown History Fluticasone/Salmet 100/50 INH 14 puff .SEE ORDER PRN PRN 12/16/18 12/27/18 Unknown History [Advair 100/50 Diskus] Meloxicam [Mobic] 15 mg PO QHS 12/16/18 12/27/18 Unknown History Solifenacin [Vesicare] 5 mg PO QHS 12/16/18 12/27/18 Unknown History Amoxicillin/Potassium Clav 1 ea PO BID #14 tab 12/27/18 Unknown Rx [Augmentin 875-125 Tablet] Insulin Glargine [Basaglar] 10 units SQ QAM #0 12/27/18 12/27/18 12/16/18 07:00 Rx Losartan/Hydrochlorothiazide 1 tab PO DAILY 12/27/18 12/27/18 Unknown History [Losartan-Hctz 100-25 mg Tab] Permethrin 5% Cream [Elimite 5% 0 gm TOP TuFr tube 12/27/18 Unknown Rx Cream] - History of Present Illness-CP Nature of Presenting Problem: Patient is a 74 year old female who presents to the ED via EMS with right side chest pain that started this morning. Patient states chest pain lasted 1 hour and then resolved. Denies nausea, shortness of breath, and diaphoresis. Patient's blood pressure was 223/93 on physical exam. Reports taking HTN medications this morning. Location: reports: other (right side) Chest Pain Radiation: reports: no radiation Quality of Pain: reports: throbbing Severity in ED: mild Onset/Duration: this morning Timing: gone now Modifying Factors: worse with: other (standing) Associated Symptoms: reports: denies symptoms Nitro Today/Relief: 0.4 mg x 4, provided by EMS Similar Symptoms Previously?: No Recently Seen Here or By Another Healthcare Provider: No Review of Systems - Adult - REVIEW OF SYSTEMS - ADULT Constitutional: reports: no symptoms reported. denies: chills, fever, fatique Eyes: reports: no symptoms reported Ears, Nose, Mouth & Throat: reports: no symptoms reported Cardiovascular: reports: no symptoms reported. denies: chest pain, irregular heart rate, palpitations Respiratory: reports: no symptoms reported. denies: cough, shortness of breath, wheezing Gastrointestinal: reports: diarrhea. denies: abdominal pain, nausea, vomiting Genitourinary: reports: no symptoms reported Musculoskeletal: reports: no symptoms reported Integumentary: reports: no symptoms reported Neurological: reports: no symptoms reported Psychiatric: reports: no symptoms reported Endocrine: reports: no symptoms reported Hematologic/Lymphatic: reports: no symptoms reported Allergic/Immunologic: reports: no symptoms reported All Other Systems: Reviewed and Negative Past History - Adult - PAST MEDICAL HISTORY-ADULT Review of Records: reports: Old Records Reviewed, Nursing Assessment Review, Medications Reviewed, Social history reviewed & non-contributory. Major Childhood Illnesses: reports: denies history Cardiovascular: reports: A-Fib, CHF, HTN, other (CHF) Respiratory: reports: asthma Gastrointestinal: reports: denies history Obstetrical/Gynecological: reports: denies history Genitourinary: reports: denies history Musculoskeletal: reports: denies history Neurological: reports: dementia Psychiatric: reports: denies history Endocrine/Immune: reports: Diabetes, thyroid disorder Other Conditions: reports: denies history - PRIOR SURGERIES/PROCEDURES Surgical/Procedure History: reports: cholecystectomy, hysterectomy, joint replacement (total knee), other (thyroid nodule; ablation) - IMMUNIZATION STATUS Childhood Immunizations: See Nurse Assessment Flu Vaccine: See Nurse Assessment - FAMILY HISTORY Family History: reviewed, not pertinent - SOCIAL HISTORY Smoking: denies Substance Use: denies Physical Exam-General - PHYSICAL EXAM-ADULT Initial Vital Signs Reviewed: Yes - CONSTITUTIONAL General Appearance: alert, no apparent distress. negative: lethargic, slow to respond - RESPIRATORY Respiratory: chest non-tender, lungs clear, normal breath sounds. negative: crackles, stridor - CARDIOVASCULAR Cardiovascular: normal peripheral pulses, regular rate, rhythm, extra beats (occasional ectopic beats). negative: tachycardia - GASTROINTESTINAL (ABDOMEN) Abdominal Exam: normal bowel sounds, non tender, soft. negative: guarding, rebound - MUSCULOSKELETAL Extremity: non-tender, normal inspection. negative: deformity, erythema - SKIN Integumentary: normal color, normal turgor, warm/dry. negative: cyanosis, jaundice, rash - NEUROLOGIC Neurologic: grossly normal. negative: aphasia, facial droop - PSYCHIATRIC Psych/Mental Status: normal mood/affect, oriented x 3. negative: anxious - HEART Score HEART Score: History: Moderately Suspicious HEART Score: ECG: Non-Specific Repolarization Disturbance/LBBB/PM HEART Score: Age: > or = 65 Years HEART Score: Risk Factors for Atherosclerotic Disease: > or = 3 Risk Factors or History of Atherosclerotic Disease HEART Score: Troponin: < or = Normal Limit (MODERATE RISK) Total HEART Score:: 6 Progress - PLAN OF CARE/RESULTS Progress/Plan/Lab Results: Vital Signs - 8 hr 02/21/19 11:35 02/21/19 11:46 02/21/19 12:03 Temperature 98.3 F Pulse Rate 64 59 L 62 Respiratory Rate 16 Blood Pressure 223/93 223/93 210/108 O2 Sat by Pulse Oximetry 97 98 100 Laboratory Results - last 24 hr 02/21/19 02/21/19 02/21/19 12:01 12:01 12:01 WBC 6.15 RBC 4.55 Hgb 12.2 Hct 36.4 L MCV 80.0 L MCH 26.8 L MCHC 33.5 RDW Std Deviation 13.7 Plt Count 209 MPV 9.4 Immature Gran % (Auto) 0.0 Neut % (Auto) 67.3 Lymph % (Auto) 24.6 Arroyo % (Auto) 6.0 Eos % (Auto) 1.8 Baso % (Auto) 0.3 Immature Gran # (Auto) 0.00 Neut # (Auto) 4.14 Lymph # (Auto) 1.51 Arroyo # (Auto) 0.37 Eos # (Auto) 0.11 Baso # (Auto) 0.02 PT INR PTT (Actin FS) Sodium 139 Potassium 3.6 Chloride 95 L Carbon Dioxide 29 Anion Gap 15 BUN 18 Creatinine 0.9 Estimated GFR/1.73 m2 > 60 BUN/Creatinine Ratio 20 Glucose 136 H Calculated Osmolality 282 Calcium 10.6 H Total Bilirubin 0.46 AST 14 ALT 11 Alkaline Phosphatase 67 Creatine Kinase 89 Troponin T Zxn-N-Zkfuvfeolam Pept 635 H Total Protein 6.7 Albumin 4.2 Globulin 2.5 Albumin/Globulin Ratio 1.7 02/21/19 02/21/19 12:01 12:01 WBC RBC Hgb Hct MCV MCH MCHC RDW Std Deviation Plt Count MPV Immature Gran % (Auto) Neut % (Auto) Lymph % (Auto) Arroyo % (Auto) Eos % (Auto) Baso % (Auto) Immature Gran # (Auto) Neut # (Auto) Lymph # (Auto) Arroyo # (Auto) Eos # (Auto) Baso # (Auto) PT 12.7 INR 0.89 PTT (Actin FS) 25.1 Sodium Potassium Chloride Carbon Dioxide Anion Gap BUN Creatinine Estimated GFR/1.73 m2 BUN/Creatinine Ratio Glucose Calculated Osmolality Calcium Total Bilirubin AST ALT Alkaline Phosphatase Creatine Kinase Troponin T < 0.010 Gyd-X-Blhkdirxalq Pept Total Protein Albumin Globulin Albumin/Globulin Ratio Orders Category Date Time Status Cardiac Monitoring DIRECTED Care 02/21/19 11:51 Active Oxygen Therapy- ED Nursing DIRECTED Care 02/21/19 11:51 Active Saline Loc NOW Care 02/21/19 11:51 Active CHEST-2 VIEWS [RAD] Stat Exams 02/21/19 11:51 Completed CBC WITH ELECTRONIC DIFF [HEME] Stat Lab 02/21/19 12:01 Completed CK PROFILE [SP CHEM] Stat Lab 02/21/19 12:01 Completed COMPREHENSIVE METABOLIC PANEL [CHEM] Stat Lab 02/21/19 12:01 Completed PRO B-NATRIURETIC PEPTIDE Stat Lab 02/21/19 12:01 Completed PROTIME WITH INR [COAG] Stat Lab 02/21/19 12:01 Completed PTT [COAG] Stat Lab 02/21/19 12:01 Completed TROPONIN T Stat Lab 02/21/19 12:01 Completed Acetaminophen [Tylenol] Med 02/21/19 13:22 Discontinued 1,000 mg PO NOW ONE Enalaprilat [Vasotec] Med 02/21/19 12:10 Discontinued 1.25 mg IV NOW ONE Hydralazine [Apresoline] Med 02/21/19 13:04 Discontinued 10 mg IV NOW ONE Nitroglycerin Med 02/21/19 12:10 Discontinued 0.5 inch TOP NOW ONE CP/SOB/Palp >45 yrs of Age Stat Oth 02/21/19 11:51 Ordered EKG [EKG] Stat Ther 02/21/19 11:51 Draft Result Diagrams: 02/21/19 12:01 02/21/19 12:01 - REASSESSMENT Reassessment #1 Time Reassessed: 13:05 Status: improving (CP free after NTP, given IV enalapril, and BP still 188/104. WIth a HEART SCORE of 6, and since patient lives by herself, will ask hospitalist to admit for observation. Will try hydralazine for HTN) - EKG 1 Time of EKG reading by physician:: 11:48 EKG Read and Signed by:: Gualberto Mcelroy EKG Interpretation (*Must complete 3 of following elements*): Abnormal Rate: 56 Rhythm: sinus bradycardia [place]: normal CO Interval: normal Comments: otherwise normal ECG - XRAY 1 XRAY Study: Chest Impression: See EMR Report ( EXAM: CHEST-2 VIEWS HISTORY: CHEST PAIN TECHNIQUE: Chest two views COMPARISON: 12/25/2018 FINDINGS: The lungs are well expanded. The heart is not enlarged. The vessels are not distended. There are no infiltrates. No pleural effusions. IMPRESSION: No acute abnormality. Electronically signed by Corbin Keith 02/21/2019 12:22 PM 02/21/19 1222 Interpreting Physician: Corbin Keith MD Dictated Date/Time: 02/21/19 1221 cc: Gualberto Mcelroy MD; Dave Mcdaniel MD) - CONSULTS/PCP/HOSPITALIST Notification #1 *Consult/PCP/Hospitalist*: YAHAIRA Gross paged at 1305 for hospitalist admission Time Discussed: 13:28 (Dr. Ferrara accepted patient. ) Reason/Comments: Dr. Mcelroy consulted with Ginny about patient Departure - Departure Date of Disposition Decision: 02/21/19 Time of Disposition Decision: 13:06 DIAGNOSIS: Precordial chest pain, Hypertensive urgency Disposition: ADMITTED INPATIENT 09 Certified Medical Emergency: Emergent Condition: Fair Referrals and Follow-Ups: Dave Mcdaniel MD [Primary Care Provider] - - Critical Care Note This patient required my direct & personal management of CC.: Yes Total Time (mins): 40 (multiple interventions to lower BP to prevent CVS damage) Critical Care Statement: This patient required my direct personal management to treat or rule out processes, the absence of which, could potentiallly result in sudden, clinically significant life or limb threatening deterioration. Attestation - Physician/ J CARLOS Attestation Patient care was provided by Advanced Practice Provider:: No The physician spent face to face time with patient:: Yes Advanced Practice Provider documentation review:: Supervising physician onsite and consulted in the evaluation and care of this patient. The physician did have a face to face encounter with the patient. This chart was documented by the indicated scribe, (Sandy Monaco Scribe) and accu rately reflects the services I performed and decisions made by me, Gualberto Mcelroy MD, as attested by the provider's signature.
[2019-02-21] MEDS ORDERED: ZOFRAN IV PRN (14:58)
[2019-02-21] MEDS ORDERED: MORPHINE IV ONE (15:01)
[2019-02-21] MEDS: APRESOLINE IV PRN (15:12)
[2019-02-21] MEDS: HUMALOG SUBQ SCH ×2 (18:07→21:51)
[2019-02-21] MEDS: NITROGLYCERIN TOP SCH ×2 (18:15→23:33)
[2019-02-21] MEDS: NS 1,000 ML IV SCH (18:19)
--- NOTE | 2019-02-21 19:30 | HISTORY AND PHYSICAL ---
PRIMARY CARE PROVIDER: Dr. Dave Mcdaniel. CHIEF COMPLAINT: Chest pain. HISTORY OF PRESENT ILLNESS: Ms. Nunez is a 74-year-old female who carries a past medical history of dementia, diabetes mellitus, hypertension, congestive heart failure, diabetic neuropathy, history of DVT, cardiac arrhythmia, atrial fibrillation, status post ablation x2, overactive bladder, GERD and asthma. She recently had a stay in our hospital for acute altered mental status while she was at [facility]. At that time she had a fall and hit her head. She came into the ED for evaluation and was found to have lice and scabies. She was initially treated for that and mastoiditis, and clinical volume depletion. She was adequately hydrated and they chose to go back home. She was set up with [facility] as well as a nurse who came out to evaluate her for her psychiatric issues. She was sent to another facility who was able to work with her and stable her out, and then she was sent to [facility], where she did well. She was moved to the [facility] [place]. She is just in the assisted living unit at this time. She did not need memory care. She, again, has only been there for 1 week; however, while she was at [facility] the medication she was on for her dementia was making her too sedated. They did some adjustments. She did better and got discharged to the [facility] [place] on the assisted living side, not the memory care. She reports this morning around 9 a.m. she started having a right-sided chest pain. She has never had a pain like this before. It lasted about an hour. There was no shortness of breath. No nausea, vomiting, diarrhea. No palpitations. No aggravating or alleviating factors. It just went away on its own. She states she did take her blood pressure medications this morning. She does have a slightly elevated calcium on her lab work. Her first set of troponins was negative. We will go ahead and trend 2 more sets of troponins, set her up for a stress test if needed, continue with p.r.n. as well as her home medications for her blood pressure, and watch her over the weekend. Hopefully we can get her back to the [facility] on Sunday. REVIEW OF SYSTEMS: Twelve-point review of systems completed and negative except for those mentioned in HPI. PAST MEDICAL HISTORY: 1. Dementia. 2. Diabetes mellitus. 3. Hypertension. 4. Congestive heart failure. 5. Diabetic neuropathy. 6. History of DVT. 7. Atrial fibrillation. 8. Overactive bladder. 9. GERD. 10. Asthma. PAST SURGICAL HISTORY: 1. Cholecystectomy. 2. Hysterectomy. 3. Cardioversion and ablation x2. 4. Right knee replacement. SOCIAL HISTORY: She lives [facility] [place]. No tobacco, alcohol or illicit drug use. She has a very supportive son at the bedside. MEDICATIONS: Home medications have not been verified. ALLERGIES: Codeine and Demerol. PHYSICAL EXAMINATION: VITAL SIGNS: Temperature 98.3 degrees, heart rate 69, respirations 18, blood pressure 189/88, O2 is 99% on room air. Initially when she came in, blood pressure was 223/93. GENERAL: Ms. Nunez is a pleasant 74-year-old female who is lying on the stretcher, in no acute distress. She is currently complaining of a headache because of the nitroglycerin paste. HEENT: Atraumatic, normocephalic. PERRL. NECK: Supple. Trachea midline. She is wearing glasses. CARDIOVASCULAR: S1, S2 appreciated. No murmurs, gallops or rubs noted. RESPIRATORY: Lung sounds clear bilaterally. GASTROINTESTINAL: Soft, nontender, nondistended. Positive bowel sounds 4 quadrants. EXTREMITIES: Negative for edema. Bilateral pedal pulses were pounding. NEUROLOGIC: The patient is awake, alert and oriented, follows commands. DIAGNOSTIC DATA: Chest x-ray shows no acute abnormality. EKG showed sinus bradycardia at 56 beats per minute. LABORATORY DATA: White count 6, hemoglobin and hematocrit 12 and 36, platelet count is 209,000. Sodium 139, potassium 3.6, BUN 18, creatinine 0.9, blood glucose is 136, calcium was 10.6. Troponin was less than 0.010. ProBNP 635. ASSESSMENT AND PLAN: 1. Chest pain rule-out. The patient did have accelerated hypertension when she came in; however, her chest pain had resolved. She was placed on nitroglycerin paste, given Vasotec intravenously and Apresoline. Her blood pressure has now come down to the 180s over 90s from 200s over 90s. We will to continue to trend her cardiac enzymes, possibly set her up for a stress test on Jalen. Check an echocardiogram. Her last one was back in 2016. We will continue with full-dose aspirin. Check a lipid profile. 2. Dementia, aware. The patient did have a stint in [facility]; however, after being discharged here she had a home health nurse come out and assess her, and she went to another facility where they regulated her dementia medications. She was stable enough and got transferred to [facility]. There she became too sedated. They made adjustments to her dementia medications again, and she was doing much better. Since that time she was evaluated by the [facility] [place], and she lives in the assisted living side. She did not need memory care and has been there for over a week now. 3. Diabetes mellitus. We will place her on sliding scale with pattern blood sugars. 4. Atrial fibrillation, paroxysmal. Aware. We will continue with her home medications when verified. 5. History of deep venous thrombosis. 6. Accelerated hypertension. We will continue her home medications when verified. We will give her p.r.n. Apresoline since patient was bradycardic in the ED. 7. Mild elevation in calcium. We will do gentle intravenous hydration. Recheck her calcium in the a.m. 8. Further recommendations to follow physician evaluation, laboratory and diagnostic data. Dictated by YAHAIRA Gandhi for Felipe Ferrara MD cc: Felipe Ferrara MD I have seen and examined Ms Nunez who presents today with chest pain. Son was at the bedside. I have reviewed her labs and imaging studies. I agree with the above HPI and the plan reflects my opinion discussed with the CLOTH MERCERIZER OPERATOR. JOVANNY PAULSON
[2019-02-21] MEDS ORDERED: BUSPAR PO SCH (21:00)
[2019-02-21] MEDS: KLOR-CON POWDER PACKET PO SCH (21:53)
[2019-02-21] MEDS: ZANTAC PO SCH (21:53)
[2019-02-21] MEDS: MELATONIN PO SCH (21:54)
[2019-02-21] MEDS: RISPERDAL PO SCH (21:54)
[2019-02-21] MEDS: LOPRESSOR PO SCH (21:54)
[2019-02-21] MEDS: VESICARE PO SCH (21:55)
--- NOTE | 2019-02-21 22:57 | ECHO REPORT ---
ORDER DATE: 02/21/2019 SUMMARY: 1. Difficult study due to limited acoustic window quality. Intravenous echo contrast agent Optison was utilized to enhance endocardial definition. 2. Aortic valve was without evidence of structural abnormality. Peak gradient across aortic valve is approximately 17 mmHg. There is very mild aortic regurgitation. Aortic valve is not well imaged but appears to open adequately on 2-dimensional images. Peak gradient across aortic valve is 17 mmHg. There is very mild aortic regurgitation. Mitral and tricuspid valves are without gross structural abnormality. Pulmonic valve is not seen. Aortic root is grossly normal in size. 3. Normal left ventricular chamber size with mild concentric left hypertrophy is demonstrated. Estimated left ejection fraction appears to be at least 65%. No regional wall motion abnormality is evident. Left atrium, right atrium, right ventricle are grossly normal size. 4. No pericardial effusion. 5. Inferior vena cava not well demonstrated. cc: Laz Jimenez MD
[2019-02-22] MEDS: TYLENOL PO PRN ×3 (01:44→22:13)
[2019-02-22] MEDS: NITROGLYCERIN TOP SCH (05:20)
[2019-02-22] MEDS: PRILOSEC PO SCH (06:01)
[2019-02-22] MEDS: HUMALOG SUBQ SCH ×4 (06:02→21:00)
--- NOTE | 2019-02-22 07:25 | Diag Imaging Result Doc PS360 ---
EXAM: CHEST-PORTABLE 02/22/2019 HISTORY: Chest Pain TECHNIQUE: AP portable at 0608 COMMENT: There is some ill-defined opacity in the left lower lobe which was not apparent on 02/21/2019. The inspiration is less optimal than on the previous study. IMPRESSION: Questionable left lower lobe atelectasis. Electronically signed by Harley Moore 02/22/2019 7:23 AM
[2019-02-22 07:37] LABS: BASO# 0.01 X1000 (0.0-0.2); BASO% 0.2 % (0.0-0.8); EOS# 0.13 X1000 (0.0-0.7); EOS% 2.5 % (0.0-10.0); HEMATOCRIT 35.5 % (37.0-47.0); HEMOGLOBIN 11.8 g/dL (12.0-16.0); LYMPH# 1.52 X1000 (1.2-3.4); LYMPH% 28.7 % (20.5-51.1); MCH 27.3 PG (27-31); MCHC 33.2 g/dL (33-37); MONO# 0.49 X1000 (0.11-0.59); MONO% 9.3 % (1.7-9.3); MPV 9.7 FL (7.4-10.4); NEUT# 3.14 X1000 (1.4-6.5); NEUT% 59.3 % (42.2-75.2); PLT 204 X1000 (130-400); RBC 4.33 XMIL (4.2-5.4); RDW 13.8 % (11.5-14.5); WBC 5.29 X1000 (4.8-10.8)
[2019-02-22 07:40] LABS: HEMOGLOBIN A1C 7.2 % (4.8-6.0)
[2019-02-22 08:04] LABS: AGAP 12; BUN 15 mg/dL (8-22); CALCIUM 8.6 mg/dL (8.8-10.2); CHLORIDE 95 mmol/L (98-107); CHOLESTEROL 197 mg/dL (0-200); COSMO 271; CREATININE 0.9 mg/dL (0.5-0.9); ESTIMATED GFR > 60; GLUCOSE 131 mg/dL (70-104); HDL 57 mg/dL (45-65); LDL 105 mg/dL; POTASSIUM 3.6 mmol/L (3.5-5.1); SODIUM 134 mmol/L (136-145); TCO2 27 mmol/L (25-35); TRIGLYCERIDES 174 mg/dL (35-135); VLDL 35 mg/dL
[2019-02-22] MEDS: BUSPAR PO SCH ×2 (08:55→22:10)
[2019-02-22] MEDS: CELEXA PO SCH (08:55)
[2019-02-22] MEDS: MOBIC PO SCH (08:56)
[2019-02-22] MEDS: LANTUS INSULIN SUBQ SCH ×2 (08:56→22:11)
[2019-02-22] MEDS: ASPIRIN PO SCH (08:57)
[2019-02-22] MEDS: KLOR-CON POWDER PACKET PO SCH ×2 (08:57→22:11)
[2019-02-22] MEDS: COZAAR PO SCH (08:58)
[2019-02-22] MEDS: NAMENDA PO SCH (08:59)
[2019-02-22] MEDS: HYDROCHLOROTHIAZIDE PO SCH (08:59)
[2019-02-22] MEDS: LOPRESSOR PO SCH ×2 (08:59→22:11)
[2019-02-22] MEDS: RISPERDAL PO SCH ×2 (09:00→22:12)
[2019-02-22] MEDS ORDERED: ASPIRIN PO SCH (09:00)
[2019-02-22] MEDS: ZANTAC PO SCH ×2 (09:00→22:12)
[2019-02-22] MEDS ORDERED: NITROGLYCERIN SL PRN (10:50)
--- NOTE | 2019-02-22 12:57 | PROGRESS NOTE ---
DATE: 02/22/2019 SUBJECTIVE: This morning Ms. Nunez refers to be feeling a whole lot better. She denies any chest pain. OBJECTIVE: Vital Signs: Blood pressure is 168/53, pulse 59, respirations 16, and temperature 98.4. General: Ms. Nunez is a 74-year-old female. She is in bed and in no distress. HEENT: Mucosa is pink and moist. Anicteric. Acyanotic. Neck: Supple. Chest: Clear to auscultation. No crepitations. No rhonchi. Cardiovascular: Regular rate and rhythm. Abdomen: Soft and nontender. Bowel sounds are present. There is no hepatosplenomegaly. Extremities: No pedal edema. GERONTOLOGICAL NURSE PRACTITIONER: The patient is awake, alert, and oriented. LABORATORY DATA: WBC is 5.29, hemoglobin 11.8, and platelet count 204. Chemistry is also reviewed and sodium is 134. The rest of the chemistry is unremarkable. The patient's A1c is 1.2. Lipid panel is unremarkable. ASSESSMENT: 1. Chest pain with unremarkable troponin and EKG. The patient did present with extremely high blood pressures, 223/93, so she could potentially have precordialgia as a result of severe uncontrolled hypertension. Blood pressure is better controlled and the patient does not have any more chest pain. We think it is still reasonable to rule out any underlying coronary artery disease. 2. Severe malignant hypertension, improving. 3. Diabetes mellitus. We will continue with insulin regimen. 4. History of atrial fibrillation, currently rate controlled. 5. Alzheimer's dementia, stable. cc: Felipe Ferrara MD
[2019-02-22] MEDS: NS 1,000 ML IV SCH ×2 (18:52→22:12)
[2019-02-22] MEDS: MELATONIN PO SCH (22:11)
[2019-02-22] MEDS: VESICARE PO SCH (22:12)
[2019-02-23] MEDS: APRESOLINE IV PRN (00:37)
[2019-02-23] MEDS: PRILOSEC PO SCH (06:03)
[2019-02-23] MEDS: HUMALOG SUBQ SCH ×3 (06:03→21:06)
[2019-02-23] MEDS: NS 1,000 ML IV SCH (06:03)
[2019-02-23] MEDS: KLOR-CON POWDER PACKET PO SCH ×2 (09:41→21:04)
[2019-02-23] MEDS: LOPRESSOR PO SCH ×2 (09:41→21:03)
[2019-02-23] MEDS: NAMENDA PO SCH (09:41)
[2019-02-23] MEDS: ZANTAC PO SCH ×2 (09:41→21:03)
[2019-02-23] MEDS: ASPIRIN PO SCH (09:41)
[2019-02-23] MEDS: MOBIC PO SCH (09:42)
[2019-02-23] MEDS: RISPERDAL PO SCH ×2 (09:42→21:04)
[2019-02-23] MEDS: HYDROCHLOROTHIAZIDE PO SCH (09:42)
[2019-02-23] MEDS: CELEXA PO SCH (09:42)
[2019-02-23] MEDS: BUSPAR PO SCH ×2 (09:42→21:05)
[2019-02-23] MEDS: COZAAR PO SCH (09:42)
[2019-02-23] MEDS: LANTUS INSULIN SUBQ SCH ×2 (09:53→21:05)
--- NOTE | 2019-02-23 11:31 | PROGRESS NOTE ---
DATE: 02/23/2019 SUBJECTIVE: Today Ms. Nunez refers to be feeling okay. Denies any chest pain. No new complaints. OBJECTIVE: Vital signs: Blood pressure is 176/74, pulse of 64, respirations 18, temperature 98.0 degrees, patient is saturating 98%. On general exam, Ms. Nunez is a 74-year-old female. She is in bed, no distress. Mucosa is pink and moist. Anicteric. Acyanotic. Neck is supple. Chest: Good air entry bilateral. There are no crepitations, no rhonchi. Cardiovascular: Regular rate and rhythm. Abdomen: Soft, nontender. Bowel sounds present. Extremities: No pedal edema. Central Nervous System: Patient is awake, alert, and oriented. LABORATORY DATA: No new results. Glucose is 123. MEDICATION: Current medications have all been reviewed. ASSESSMENT: 1. Chest pain on presentation with unremarkable troponins and EKG. The patient is pending a stress test tomorrow morning. 2. Severe uncontrolled hypertension. This is improving. We will continue to titrate her medications. 3. Diabetes mellitus, controlled. 4. History of atrial fibrillation, currently rate controlled. 5. Alzheimer dementia stable. Today, Ms. Nunez is fairly stable. We are still pending a stress test in the morning. If that is negative, we will be able to discharge her back to the assisted living. cc: Felipe Ferrara MD
[2019-02-23] MEDS: NORVASC PO SCH ×2 (16:22→21:03)
[2019-02-23] MEDS: VESICARE PO SCH (21:04)
[2019-02-23] MEDS: MELATONIN PO SCH (21:04)
[2019-02-24] MEDS ORDERED: NS 1,000 ML IV SCH
[2019-02-24] MEDS: HUMALOG SUBQ SCH ×4 (06:25→21:45)
[2019-02-24] MEDS: PRILOSEC PO SCH (06:25)
--- NOTE | 2019-02-24 07:36 | EKG Report ---
Test Performed on : 02/22/2019 06:25:19 AM Test Reason : fu Blood Pressure : / mmHG Vent. Rate : 067 BPM Atrial Rate : 067 BPM P-R Int : 152 ms QRS Dur : 088 ms QT Int : 458 ms P-R-T Axes : 075 020 069 degrees QTc Int : 483 ms Normal sinus rhythm. Normal ECG When compared with ECG of 21-FEB-2019 14:59, (Unconfirmed) Criteria for Inferior infarct are no longer present Confirmed by Jimy SALAZAR, [employer] ([id number]) on 02/24/2019 9:30:19 AM
[2019-02-24] MEDS ORDERED: LEXISCAN ONE (08:44)
--- NOTE | 2019-02-24 09:59 | EKG Report ---
Test Performed on : 02/21/2019 2:59:11 PM Test Reason : ED. No order in [place] Blood Pressure : / mmHG Vent. Rate : 062 BPM Atrial Rate : 062 BPM P-R Int : 116 ms QRS Dur : 084 ms QT Int : 476 ms P-R-T Axes : 033 -10 048 degrees QTc Int : 483 ms Normal sinus rhythm. Inferior infarct , age undetermined Abnormal ECG When compared with ECG of 21-FEB-2019 11:48, (Unconfirmed) No significant change was found Unconfirmed Result
[2019-02-24] MEDS: KLOR-CON POWDER PACKET PO SCH ×2 (10:28→21:32)
[2019-02-24] MEDS: LOPRESSOR PO SCH ×2 (10:29→21:32)
[2019-02-24] MEDS: ZANTAC PO SCH ×2 (10:29→21:33)
[2019-02-24] MEDS: CELEXA PO SCH (10:29)
[2019-02-24] MEDS: COZAAR PO SCH (10:29)
[2019-02-24] MEDS: MOBIC PO SCH (10:29)
[2019-02-24] MEDS: LANTUS INSULIN SUBQ SCH ×2 (10:29→21:45)
[2019-02-24] MEDS: RISPERDAL PO SCH ×2 (10:30→21:33)
[2019-02-24] MEDS: NAMENDA PO SCH (10:30)
[2019-02-24] MEDS: NORVASC PO SCH ×2 (10:30→21:32)
[2019-02-24] MEDS: HYDROCHLOROTHIAZIDE PO SCH (10:30)
[2019-02-24] MEDS: BUSPAR PO SCH ×2 (10:30→21:31)
[2019-02-24] MEDS: ASPIRIN PO SCH (10:30)
[2019-02-24] MEDS: TYLENOL PO PRN (11:10)
--- NOTE | 2019-02-24 13:44 | Diag Imaging Result Document ---
PROCEDURE NAME: MYOCARDIAL PERF SCAN, STR/REST - 02/24/2019 INDICATION: Chest pain. PROCEDURES PERFORMED: 1. Lexiscan stress. 2. One-day stress rest myocardial perfusion imaging. PROCEDURE IN DETAIL: Ms. Nunez was brought to the nuclear laboratory and had a resting study with the injection of 12.6 mCi of technetium-99m sestamibi with the usual imaging protocol utilized. She subsequently was brought back and had a Lexiscan stress and at peak stress, was injected with 36.9 mCi of technetium-99m sestamibi with the usual imaging protocol utilized. FINDINGS: Lexiscan rest results: 1. Baseline EKG shows sinus rhythm with PACs. 2. Lexiscan stress did not demonstrate any clear evidence of ischemic related EKG changes or significant arrhythmias. Occasional PACs continued throughout the course of this study. Perfusion imaging results: 1. No evidence of abnormal extracardiac uptake. 2. TID ratio is 1.15. 3. Perfusion imaging demonstrates a small size, mild intensity, fixed defect at the apex, likely suggestive of apical thinning artifact. There was no evidence of ischemic changes. This study appears to have a low risk of ischemic outcome. 4. Normal ejection fraction of 79%. End-diastolic volume 81, end-systolic volume 17. Normal wall motion. cc: Keegan Pabon MD
--- NOTE | 2019-02-24 15:16 | DISCHARGE SUMMARY ---
ADMISSION DATE: 02/21/2019 DISCHARGE DATE: 02/24/2019 DISPOSITION: Back to independent living at [facility] in [place]. ADMISSION DIAGNOSES: 1. Chest pain, to rule out. 2. Dementia. 3. Diabetes mellitus. 4. History of atrial fibrillation. DIAGNOSES AT THE TIME OF DISCHARGE: 1. Precordialgia with negative cardiac workup, likely associated with severe hypertension. 2. Hypertensive urgency on presentation. 3. Mild left ventricular hypertrophy secondary to hypertensive heart disease. 4. Diabetes mellitus. 5. Paroxysmal atrial fibrillation, currently rate controlled. 6. Alzheimer's dementia. DISCHARGE MEDICATIONS: 1. Citalopram 20 mg p.o. daily. 2. Metoprolol 50 mg b.i.d. 3. VESIcare 5 mg p.o. at bedtime. 4. BuSpar 5 mg b.i.d. 5. Hydrochlorothiazide 25 mg p.o. daily. 6. Loperamide. 7. Melatonin 5 mg at bedtime. 8. Losartan 100 mg p.o. daily. 9. Amlodipine 5 mg b.i.d. 10. Insulin Lantus 22 units subcutaneous daily. PRESENTING COMPLAINT: Chest pain. HISTORY OF PRESENTING COMPLAINT: Ms. Nunez is a 74-year-old, female with a history of diabetes, hypertension, atrial fibrillation, and diastolic heart failure, who came to the emergency department because of chest pain. Because of her risk factors, the patient was admitted for cardiac risk stratification. HOSPITAL COURSE: Ms. Nunez presented actually with extremely high blood pressure with the numbers being the systolic of 210 over diastolic of 108. Blood pressure was better controlled during the hospital course. Her chest pain also got resolved. Troponins were trended 3 times. They were all negative. Her EKGs did not show any changes. A stress test was done and official report seems to suggest no evidence of abnormal extracardiac uptake. Normal ejection fraction of 79% and no evidence of ischemic changes. Echocardiogram was also done which was unremarkable. The patient's chest pain got significantly improved, actually got resolved with adequate blood pressure control. This morning, she feels a lot better. Her vitals, blood pressure is 151/62, with a pulse of 83, respirations are 16, temperature is 97.9 degrees. The patient is saturating 100% on room air. She is clinically stable. Physical exam is unremarkable. We think she is okay for discharge. She is going to be following up with her primary care doctor (Dr. Jonas Kilgore). Other discharge instructions have been discussed with her. She voiced understanding. Time spent for discharge was 35 minutes. cc: MD Jonas Suero
[2019-02-24] MEDS: MELATONIN PO SCH (21:32)
[2019-02-24] MEDS: VESICARE PO SCH (21:33)
[2019-02-25] MEDS: HUMALOG SUBQ SCH ×2 (06:02→11:03)
[2019-02-25] MEDS: PRILOSEC PO SCH (06:50)
[2019-02-25] MEDS: COZAAR PO SCH (09:07)
[2019-02-25] MEDS: CELEXA PO SCH (09:07)
[2019-02-25] MEDS: ASPIRIN PO SCH (09:07)
[2019-02-25] MEDS: BUSPAR PO SCH (09:07)
[2019-02-25] MEDS: NORVASC PO SCH (09:07)
[2019-02-25] MEDS: KLOR-CON POWDER PACKET PO SCH (09:08)
[2019-02-25] MEDS: MOBIC PO SCH (09:08)
[2019-02-25] MEDS: HYDROCHLOROTHIAZIDE PO SCH (09:08)
[2019-02-25] MEDS: RISPERDAL PO SCH (09:08)
[2019-02-25] MEDS: ZANTAC PO SCH (09:08)
[2019-02-25] MEDS: LOPRESSOR PO SCH (09:08)
[2019-02-25] MEDS: LANTUS INSULIN SUBQ SCH (09:08)
[2019-02-25] MEDS: NAMENDA PO SCH (09:08)
[2019-02-25 12:12] VITALS: BP 141/65
--- NOTE | 2019-02-25 14:24 | PROGRESS NOTE ---
DATE: 02/25/2019 SUBJECTIVE: Ms. Nunez was actually to be discharged yesterday, but I understand because she lives at assisted living the facility needs to come and evaluate her before she can be discharged. She denies any complaint today. OBJECTIVE: Her vitals are stable. Blood pressure is 141/65, pulse is 63, respirations 18, temperature 98 degrees. The patient is saturating 98% in room air. ASSESSMENT/PLAN: She has been completely asymptomatic. Physical exam is unremarkable. We think she is stable for discharge any time becomes evaluated. Please refer to the details of the discharge summary that was dictated yesterday in her chart. cc: Felipe Ferrara MD
[2019-02-25] MEDS: TYLENOL PO PRN (15:59)
== END 2019-02-25 17:34 | disposition home or self-care (01) | DRG 305 ==
LOC: SUPCPDRO → EDIPHOLD 11:28 → ED 11:28 → OBSVTOIN 14:22 → 3N 17:45
PROVIDERS: ATTEND Internal Medicine
CPT/HCPCS: 71010; 71020; 71045; 71046; 78452; 80048; 80053; 80061; 82550; 82948; 83036; 83880; 84484; 85025; 85610; 85730; 93005; 93010; 93017; 93306; 94761; 94799; 96374; 96375; 96376; 99285; 99291; A9270; A9500; C8929; J0360; J1815; J2270; J2405; J2785; J7030; Q9957; XXXXX

== ENCOUNTER 2019-03-25 05:55 | Inpatient (IN) ==
--- NOTE | 2019-03-25 06:06 | PROVIDER DOCUMENTATION ---
HPI-General Adult - General Chief Complaint: Chest Pain Stated Complaint: chest pain Time Seen by Provider: 03/25/19 06:04 Source: patient, EMS Allergies/Adverse Reactions: Patient Allergies Allergy/AdvReac Type Severity Reaction Status Date / Time codeine AdvReac Intermediate VOMITING Verified 03/25/19 07:25 meperidine [From Demerol] AdvReac Intermediate NAUSEA/VOMI Verified 03/25/19 07:25 TING Home Medications: Home Medication List Medication Instructions Recorded Confirmed Last Taken Type Citalopram [Celexa] 20 mg PO DAILY 03/06/16 03/25/19 02/21/19 History Metoprolol [Lopressor] 50 mg PO BID 06/06/17 03/25/19 02/21/19 History Albuterol Sulfate [Proair Hfa] 8.5 gm INHALATION PRN PRN 12/16/18 03/25/19 Unknown History Fluticasone/Salmet 100/50 INH 14 puff .SEE ORDER PRN PRN 12/16/18 03/25/19 Unknown History [Advair 100/50 Diskus] Solifenacin [Vesicare] 5 mg PO QHS 12/16/18 03/25/19 02/20/19 History Aspirin 1 tab PO DAILY 02/21/19 03/25/19 02/21/19 History Buspirone HCl [Buspar] 1 tab PO BID 02/21/19 03/25/19 02/21/19 History Fluticasone 50 Mcg Nasal [place] 1 spray INH QAM 02/21/19 03/25/19 02/21/19 History [Flonase] Hydrochlorothiazide 1 tab PO DAILY 02/21/19 03/25/19 02/21/19 History Losartan Potassium [Cozaar] 1 tab PO DAILY 02/21/19 03/25/19 02/21/19 History Melatonin 2 tab PO QHS 02/21/19 03/25/19 02/20/19 History Memantine HCl [Namenda] 1 tab PO DAILY 02/21/19 03/25/19 02/21/19 History Risperidone 1 tab PO BID 02/21/19 03/25/19 02/21/19 History Amlodipine [Norvasc] 5 mg PO BID #120 tab 02/24/19 03/25/19 Unknown Rx Insulin Glargine [Lantus Insulin] 22 unit SUBQ QAM unit 02/24/19 03/25/19 Unknown Rx Omeprazole [Prilosec] 20 mg PO DAILY@0700 #90 cap 02/24/19 03/25/19 Unknown Rx Potassium Chloride 10% Liquid 20 meq PO DAILY #1 udc 02/24/19 03/25/19 Unknown Rx Acetaminophen [Tylenol] 650 mg PO Q6H PRN 03/25/19 03/25/19 Unknown History Insulin Glargine [Basaglar] 18 units SQ DAILY 03/25/19 03/25/19 Unknown History - History of Present Illness -Gen Adult Nature of Presenting Problems: Pt presents with cp, x 2-3 days, worse this am, right sided, lasted for 30 min and resolved, pt is now cp free, pt denies f/c, lucas, sob, cough, ap, n/v/d. pt is lying in bed in no acute distress. Location of Pain/Injury: reports: chest Pain Radiation: reports: no radiation Quality of Pain: reports: sharp Severity: reports: moderate Onset/Duration: reports: just prior to arrival Timing: reports: gone now Context/Activities at Onset: reports: none Modifying Factors: improves with: nothing Associated Symptoms: reports: denies symptoms Similar Symptoms Previously?: No Recently seen or treated by another doctor?: No Review of Systems - Adult - REVIEW OF SYSTEMS - ADULT Constitutional: reports: no symptoms reported Eyes: reports: no symptoms reported Ears, Nose, Mouth & Throat: reports: no symptoms reported Cardiovascular: reports: see HPI Respiratory: reports: no symptoms reported Gastrointestinal: reports: no symptoms reported Genitourinary: reports: no symptoms reported Musculoskeletal: reports: no symptoms reported Integumentary: reports: no symptoms reported Neurological: reports: no symptoms reported Psychiatric: reports: no symptoms reported Endocrine: reports: no symptoms reported Hematologic/Lymphatic: reports: no symptoms reported Allergic/Immunologic: reports: no symptoms reported All Other Systems: Reviewed and Negative Past History - Adult - PAST MEDICAL HISTORY-ADULT Review of Records: reports: Old Records Reviewed, Nursing Assessment Review, Medications Reviewed, Social history reviewed & non-contributory. Major Childhood Illnesses: reports: denies history Cardiovascular: reports: A-Fib, CHF, HTN, other (CHF) Respiratory: reports: denies history Gastrointestinal: reports: denies history Obstetrical/Gynecological: reports: denies history Genitourinary: reports: denies history Musculoskeletal: reports: denies history Neurological: reports: denies history Psychiatric: reports: denies history Endocrine/Immune: reports: denies history Other Conditions: reports: denies history - PRIOR SURGERIES/PROCEDURES Surgical/Procedure History: reports: cholecystectomy, hysterectomy, orthopedic (extremity), other (thyroid nodule; ablation) - IMMUNIZATION STATUS Childhood Immunizations: See Nurse Assessment Flu Vaccine: See Nurse Assessment - FAMILY HISTORY Family History: reviewed, not pertinent Physical Exam-General - PHYSICAL EXAM-ADULT Initial Vital Signs Reviewed: Yes - CONSTITUTIONAL General Appearance: appears well - EYES Eyes: PERRL/EOMI - HEAD, EARS, NOSE, MOUTH & THROAT HENMT: normocephalic/atraumatic - NECK Neck: normal inspection - RESPIRATORY Respiratory: lungs clear, no respiratory distress, no accessory muscle use - CARDIOVASCULAR Cardiovascular: regular rate, rhythm - GASTROINTESTINAL (ABDOMEN) Abdominal Exam: normal bowel sounds, non tender, soft - LYMPHATIC Lymphatic: no adenopathy - MUSCULOSKELETAL Back Exam: normal inspection Extremity: normal range of motion - SKIN Integumentary: normal color - NEUROLOGIC Neurologic: grossly normal - PSYCHIATRIC Psych/Mental Status: normal mood/affect Progress - PLAN OF CARE/RESULTS Progress/Plan/Lab Results: Orders Category Date Time Status Nursing- Obtain EKG ONCE Care 03/25/19 05:55 Active cxr [CHEST-1 VIEW] [RAD] Stat Exams 03/25/19 06:03 Ordered CBC WITH ELECTRONIC DIFF [HEME] Stat Lab 03/25/19 06:03 Uncollected COMPREHENSIVE METABOLIC PANEL [CHEM] Stat Lab 03/25/19 06:03 Uncollected PRO B-NATRIURETIC PEPTIDE Stat Lab 03/25/19 06:03 Uncollected PROTIME WITH INR [COAG] Stat Lab 03/25/19 06:03 Uncollected PTT [COAG] Stat Lab 03/25/19 06:03 Uncollected TROPONIN T Stat Lab 03/25/19 06:03 Uncollected EKG [EKG] Stat Ther 03/25/19 05:55 Ordered At recheck ([id number]) Pt noted that her CP has returned and is requesting pain meds. Result Diagrams: 03/25/19 06:19 03/25/19 06:19 - EKG 1 Time of EKG reading by physician:: 06:04 EKG Read and Signed by:: Librado Vallejo EKG Interpretation (*Must complete 3 of following elements*): Abnormal (afib with RVR) Rate: 102 Rhythm: irregular irregular [place]: normal MD Interval: normal ST Wave: normal Prior EKG Comparison: changes noted - CONSULTS/PCP/HOSPITALIST Notification #1 *Consult/PCP/Hospitalist*: Alayna for Dr Ferrara Time Discussed: 09:10 Reason/Comments: asked that pt be discussed with head screen worker #2 Consult: Dr Dyer Time Discussed: 09:15 Reason/Comments: advised to admit Consult Disposition: Admit #3 Consult: Alayna for Dr Ferrara Time Discussed: 09:22 Consult Disposition: Will see in ED, Admit Departure - Departure Date of Disposition Decision: 03/25/19 Time of Disposition Decision: 09:26 DIAGNOSIS: Chest pain, A-fib, HTN (hypertension), CHF (congestive heart failure), Anemia Disposition: ADMITTED INPATIENT 09 Certified Medical Emergency: Emergent Condition: Fair Referrals and Follow-Ups: Dave Mcdaniel MD [Primary Care Provider] - - Critical Care Note This patient required my direct & personal management of CC.: No Attestation - Physician/ J CARLOS Attestation Patient care was provided by Advanced Practice Provider:: No The physician spent face to face time with patient:: Yes Advanced Practice Provider documentation review:: Supervising physician onsite and consulted in the evaluation and care of this patient. The physician did have a face to face encounter with the patient.
[2019-03-25 06:41] LABS: BASO# 0.03 X1000 (0.0-0.2); BASO% 0.4 % (0.0-0.8); EOS# 0.18 X1000 (0.0-0.7); EOS% 2.7 % (0.0-10.0); HEMOGLOBIN 10.7 g/dL (12.0-16.0); IMM GRAN# 0.04 X1000 (0.0-0.04); IMM GRAN% 0.6 % (0.0-0.5); LYMPH# 1.69 X1000 (1.2-3.4); LYMPH% 25.2 % (20.5-51.1); MCH 26.7 PG (27-31); MCHC 32.4 g/dL (33-37); MCV 82.3 FL (81-99); MONO# 0.58 X1000 (0.11-0.59); MONO% 8.6 % (1.7-9.3); MPV 9.5 FL (7.4-10.4); NEUT# 4.19 X1000 (1.4-6.5); NEUT% 62.5 % (42.2-75.2); PLT 262 X1000 (130-400); RBC 4.01 XMIL (4.2-5.4); RDW 13.5 % (11.5-14.5); WBC 6.71 X1000 (4.8-10.8)
[2019-03-25 06:43] LABS: INR 0.97
[2019-03-25 06:44] LABS: PTT 28.1 Seconds (22.3-41.8)
[2019-03-25 06:53] LABS: AGAP 16; ALB/GLOB RATIO 1.5; ALBUMIN 3.8 g/dL (3.5-5.0); ALKALINE PHOSPHATASE 98 U/L (32-104); BUN 11 mg/dL (8-22); CALCIUM 9.3 mg/dL (8.8-10.2); CHLORIDE 100 mmol/L (98-107); COSMO 283; CREATININE 0.9 mg/dL (0.5-0.9); ESTIMATED GFR > 60; GLUCOSE 144 mg/dL (70-104); GOT 12 U/L (10-30); GPT 10 U/L (10-36); POTASSIUM 4.1 mmol/L (3.5-5.1); SODIUM 141 mmol/L (136-145); TCO2 25 mmol/L (25-35); TOTAL BILIRUBIN 0.17 mg/dL (0.20-1.00); TOTAL PROTEIN 6.4 g/dL (6.3-8.3)
--- NOTE | 2019-03-25 07:18 | EKG Report ---
Test Performed on : 03/25/2019 06:04:10 AM Test Reason : CP Blood Pressure : / mmHG Vent. Rate : 102 BPM Atrial Rate : 077 BPM P-R Int : 000 ms QRS Dur : 074 ms QT Int : 360 ms P-R-T Axes : 000 005 060 degrees QTc Int : 469 ms Atrial fibrillation. with rapid ventricular response. Low voltage QRS Septal infarct , age undetermined Abnormal ECG When compared with ECG of 22-FEB-2019 06:25, Atrial fibrillation. has replaced Sinus rhythm. Vent. rate has increased BY 35 BPM Septal infarct is now present ST now depressed in Anterior leads T wave inversion now evident in Anterior leads Unconfirmed Result
--- NOTE | 2019-03-25 07:24 | Diag Imaging Result Doc PS360 ---
EXAM: CHEST-1 VIEW INDICATION: chest pain TECHNIQUE: One view COMPARISON: 02/22/2019 FINDINGS: Inspiration is suboptimal. There is ill-defined opacity at the left lung base that is actually fairly similar to the previous study likely representing atelectasis. There is no discrete pleural fluid collection or pneumothorax. The cardiomediastinal silhouette and central vasculature are grossly unremarkable. IMPRESSION: Likely mild atelectasis at the left lung base. Electronically signed by Waqar Orozco 03/25/2019 7:22 AM
[2019-03-25] MEDS ORDERED: ZOFRAN IV ONE (09:27)
[2019-03-25] MEDS ORDERED: DILAUDID IV ONE (09:27)
[2019-03-25] MEDS ORDERED: NITROGLYCERIN ONE (09:47)
[2019-03-25] MEDS ORDERED: VENTOLIN HFA INH PRN (10:06)
[2019-03-25] MEDS ORDERED: TYLENOL PO PRN (10:06)
[2019-03-25] MEDS ORDERED: ZOFRAN IV PRN ×2 (10:06→23:49)
[2019-03-25] MEDS ORDERED: NITROGLYCERIN SL ONE (10:37)
[2019-03-25] MEDS ORDERED: CARDIZEM IV ONE (12:20)
[2019-03-25] MEDS ORDERED: CARDIZEM 125/NS 125 MG/125 ML IVPB IV SCH (12:30)
--- NOTE | 2019-03-25 13:40 | HISTORY AND PHYSICAL ---
PRIMARY CARE PHYSICIAN: Dr. Dave Mcdaniel CHIEF COMPLAINT: Right-sided chest pain for the past 2 to 3 days that had progressively worsened. HISTORY OF PRESENTING ILLNESS: This is a 74-year-old female who presents to [facility] with complaints of chest pain on the right side that has progressively worsened over the past 2 to 3 days. She was recently admitted to the hospital at [facility] on 02/21/2018 with chest pain and had a myocardial perfusion scan on 02/24/2019 that was read per Cardiology as normal. She has had a history of atrial fibrillation in the past but has been in normal sinus rhythm during her last hospitalization. Today, her EKG read atrial fibrillation with RVR at 102. She had 2 sets of cardiac enzymes that were negative. This case was discussed with the negotiations director per the ER physician, who felt that she needed to be admitted for some additional workup and so she will be admitted for further evaluation and treatment. PAST MEDICAL HISTORY: Dementia, diabetes type 2, hypertension, congestive heart failure, diabetic neuropathy, history of DVT, atrial fibrillation, overactive bladder, GERD and asthma. PAST SURGICAL HISTORY: Cholecystectomy, hysterectomy, a cardioversion and ablation x2 and a right knee replacement. FAMILY HISTORY: Reviewed and noncontributory. SOCIAL HISTORY: She currently lives at the [facility] in [place]. Denies any tobacco, alcohol or illicit drug use. ALLERGIES: Codeine and meperidine. HOME MEDICATIONS: Tylenol 650 mg p.o. q.6 hours p.r.n., ProAir inhalation p.r.n., Norvasc 5 mg p.o. b.i.d., aspirin 325 mg p.o. daily, BuSpar 5 mg p.o. b.i.d., Celexa 20 mg p.o. daily, Flonase 1 spray nasally daily, Advair 100/5 1 puff p.r.n., hydrochlorothiazide 25 mg p.o. daily, Basalglar 18 units subcutaneous daily, Lantus 22 units subcutaneous q.a.m., Cozaar 100 mg p.o. daily, melatonin 5 mg 2 tablets at bedtime, Namenda 5 mg p.o. daily, Lopressor 50 mg p.o. b.i.d., Prilosec 20 mg p.o. daily, potassium 20 mEq per 15 mL give 20 mEq p.o. daily, risperidone 1 tablet p.o. b.i.d., and VESIcare 5 mg p.o. at bedtime. LABORATORY DATA: Showed a white blood cell count of 6.71, hemoglobin of 10.7, hematocrit 33, platelets 262,000. PT and INR of 13 and 0.97. Sodium of 141, potassium 4.1, chloride 100, CO2 25, BUN of 11, creatinine 0.9, glucose 144. Troponins were negative x2 sets. ProBNP of 1153. EKG showed atrial fibrillation with RVR at 102. Chest x-ray showed likely mild atelectasis at the left lung base. REVIEW OF SYSTEMS: She denied any fever, chills, blurred vision, dizziness. She was positive for right-sided chest pain. Denied any radiating of pain. Denied any shortness of breath, cough. Denied any abdominal pain, constipation, diarrhea, burning or hurting with urination. PHYSICAL EXAMINATION: VITAL SIGNS: On arrival, she had a temperature of 97.8 degrees, pulse 105, respirations 18, blood pressure was 83/77, saturating 96% on room air. Currently, blood pressure is up to 133/91. GENERAL: This is a 74-year-old female who is lying in the bed and answers questions appropriately. HEENT: Normocephalic, atraumatic. Normal ENT inspection. Oropharynx and nares are clear. EYES: Pupils are equal, round, reactive to light and accommodation. Extraocular movements are intact. NECK: Normal inspection, normal range of motion. LUNGS: Clear to auscultation bilaterally with equal lung expansion and chest wall movement. HEART: With irregular rate and rhythm, but no murmurs, rubs, or gallops. ABDOMEN: Soft, nontender, nondistended. Bowel sounds are present x4 quadrants. MUSCULOSKELETAL: She has 5/5 strength x4 extremities. NEUROLOGICAL: The cranial nerves 2-12 appear grossly intact. ASSESSMENT: 1. Chest pain. 2. Atrial fibrillation paroxysmal. 3. Hypotension resolved after arrival. 4. Diabetes type 2. PLAN: She will be admitted to the CIC unit, placed on telemetry O2 per protocol. Healthy heart diet. We will consult Cardiology. Continue home medications as previously identified. Recheck CBC, BMP in the a.m. and further orders after seen by attending and by qa consultant. Dictated by YAHAIRA Stark for Felipe Ferrara MD cc: MD Sarah Mcconnell CRNP Raphael K. Quansah, MD I have seen and examined Ms Nunez today. Ms Nunez presents with chest pain and Afib. I have reviewed her labs and imagining studies. I agree with the above HPI and the plan reflects my opinion discussed with the COLLECTION DEVELOPMENT LIBRARIAN. KHURRAM
--- NOTE | 2019-03-25 13:40 | Diag Imaging Result Doc PS360 ---
EXAM: CT ANGIOGRM PULMONARY ARTERIES HISTORY: SOB/HI D-D TECHNIQUE: CT chest with intravenous contrast. Pulmonary two protocol with MIP images. COMPARISON: None. FINDINGS: Normal opacification of the pulmonary arteries and their major branches. No thoracic aortic aneurysm or dissection. No cardiomegaly. Trace pleural fluid. No enlarged lymph nodes. Mild pulmonary edema. No consolidation. No bronchiectasis. Minimal atelectasis in the lung bases posteriorly. The gallbladder has been removed. The left lobe of the thyroid is enlarged. IMPRESSION: 1.No pulmonary emboli 2.Trace pleural fluid with basilar atelectasis 3.Enlarged left lobe of the thyroid This exam was performed using automated exposure control, adjustment of mA or kV according to patient size, and/or use of iterative reconstruction technique. Electronically signed by Corbin Keith 03/25/2019 1:38 PM
[2019-03-25] MEDS: ELIQUIS PO SCH ×2 (13:54→21:34)
[2019-03-25 17:05] LABS: URINE SOURCE CATH
[2019-03-25 17:09] LABS: BILIRUBIN URINE NEGATIVE (NEGATIVE); BLOOD URINE NEGATIVE (NEGATIVE); COLOR STRAW; GLUCOSE URINE NEGATIVE (NEGATIVE); KETONE URINE NEGATIVE (NEGATIVE); LEUKOCYTES URINE NEGATIVE (NEGATIVE); NITRITE URINE NEGATIVE (NEGATIVE); PROTEIN URINE NEGATIVE (NEGATIVE); SP GRAVITY URINE 1.047; TURBIDITY URINE CLEAR (CLEAR); UROBILINOGEN URINE NORMAL (NORMAL)
[2019-03-25 17:10] LABS: UR EPITHELIAL CELLS <10 /HPF (<10); URINE BACTERIA NEGATIVE /HPF; URINE RBC <10 /HPF (<10); URINE WBC <10 /HPF (<10)
--- NOTE | 2019-03-25 19:42 | CARDIOLOGY CONSULTATION ---
DATE: 03/25/2019 CONSULTATION REQUESTED BY: Hospitalist service. THE REASON FOR CONSULT: The patient with chest pain. CHIEF COMPLAINT: Chest pain. HISTORY: Mrs. Nunez is a 74-year-old female who comes from assisted living facility, [facility]. She was brought today because she kept on having recurrent right- sided chest discomfort which she describes as an ache that comes and goes. She has been experiencing that for the past 4 days. She says that she has not experienced that before. At the time of my visit, which is about 4:10 p.m., she is not having any distress or discomfort. The patient is with her son, who knows her entire history. The patient at this time is pleasantly resting and has no complaints. PAST HISTORY: Positive for hypertension. Positive for diabetes mellitus type 2, paroxysmal atrial fibrillation, asthma, dementia, acid reflux, and history of deep venous thrombosis. SURGICAL HISTORY: She had a cholecystectomy, hysterectomy. She has had ablation for atrial fibrillation twice; 1 at [facility] in [place], and 2nd time at [facility] in [place]. She has had knee replacement. SOCIAL HISTORY: She is twice. She is retired. She lives at the assisted living facility. She worked for [employer] up until 1998. Not a smoker. She has only 1 son who is present in the room. FAMILY HISTORY: Noncontributory. ALLERGIES: Codeine and Demerol. HOME MEDICATIONS: Listed at the time of this admission included acetaminophen, albuterol, amlodipine 5 twice a day, aspirin 1 tablet daily, buspirone 1 tablet twice a day, Celexa 20 mg daily, fluticasone 1 spray in the morning, hydrochlorothiazide 1 tablet daily, insulin Glargine 18 units daily and Lantus 22 units in the morning, losartan 1 tablet daily, melatonin 2 tablets at bedtime, Namenda 1 tablet daily, metoprolol 50 twice a day, omeprazole 20 mg daily, risperidone 1 tablet twice a day, VESIcare 5 mg at bedtime. REVIEW OF SYSTEMS: She walks with a walker. She has issues with memory. She is pleasant and not agitated. She has not experienced any falls. No other positives. She said that whenever she had her atrial fibrillation, she did not experience chest pain like she is doing now. In the ER, they noted that her EKG had changed. She was recently admitted to the hospital back on February 21 through February 25. They did a stress test that showed no ischemia and an echocardiogram which showed no abnormalities. They sent her home with no definite diagnosis of any specific condition. At that time, they basically had no idea of why the patient had chest pain. Of note, on the stress test, she had occasional PACs and there was an apical thinning artifact with normal ejection fraction of left ventricle. Today, she has had a CT of the pulmonary artery that showed no pulmonary emboli, trace pleural fluid with basilar atelectasis and large left lobe of the thyroid and I do not see evidence of any significant degree of coronary atherosclerosis on the CTA of the pulmonary arteries. PHYSICAL EXAM: Vital signs: Today blood pressure 152/87, pulse 106 to 124, temperature 97.8 degrees, respirations 18. She is awake, alert, oriented, in no distress. HEENT: Unremarkable. Chest: Sounds clear to auscultation and percussion. Heart: Sounds are irregularly irregular. No gallop or murmur. Abdomen: Nontender. Extremities: Showed no edema. Pulses are palpable. Neurological: Nonfocal. Moves 4 extremities. LABORATORY DATA: Sodium 141, potassium 4.1, BUN 11, creatinine 0.9. Her 12 lead EKG from the emergency room department shows atrial fibrillation with rapid ventricular response, question of septal scar. IMPRESSION: 1. Patient with atrial fibrillation, rapid response. This is a recurrent condition. She has had a previous pulmonary venous ablation twice. 2. Hypertension. 3. Dementia. 4. History of deep vein thrombosis in the past. RECOMMENDATION: We have requested a D-dimer that came back as slightly elevated and for that matter, we did a CT of the pulmonary arteries that is negative for blood clots. At this time, we are going to put her on metoprolol plus flecainide and we will see how she does over the next day or 2. If she does not convert to sinus rhythm, then we will keep her on flecainide, metoprolol at higher doses and we will proceed with the cardioversion following that. Thank you again for the opportunity to participate in her evaluation. cc: MD KHURRAM Rose
[2019-03-25] MEDS ORDERED: NORVASC PO SCH (21:00)
[2019-03-25] MEDS: TAMBOCOR PO SCH (21:33)
[2019-03-25] MEDS: MELATONIN PO SCH (21:34)
[2019-03-25] MEDS: LOPRESSOR PO SCH (21:34)
[2019-03-25] MEDS: RISPERDAL PO SCH (21:34)
[2019-03-25] MEDS: BUSPAR PO SCH (21:36)
[2019-03-25] MEDS: VESICARE PO SCH (21:36)
[2019-03-25] MEDS: TYLENOL PO PRN (21:58)
--- NOTE | 2019-03-25 23:38 | EKG Report ---
Test Performed on : 03/25/2019 11:21:30 PM Test Reason : Chest pain Blood Pressure : / mmHG Vent. Rate : 084 BPM Atrial Rate : 085 BPM P-R Int : 000 ms QRS Dur : 090 ms QT Int : 394 ms P-R-T Axes : 000 004 066 degrees QTc Int : 465 ms Atrial fibrillation. Cannot rule out Anterior infarct (cited on or before 22-FEB-2019) Abnormal ECG When compared with ECG of 25-MAR-2019 06:04, (Unconfirmed) Questionable change in initial forces of Anteroseptal leads Confirmed by Reji Tovar MD ([id number]) on 03/27/2019 7:27:50 AM
[2019-03-25] MEDS ORDERED: MAALOX PLUS LIQUID PO PRN (23:49)
[2019-03-25] MEDS ORDERED: XANAX PO PRN (23:49)
[2019-03-25] MEDS ORDERED: NITROGLYCERIN SL PRN (23:49)
[2019-03-25] MEDS ORDERED: RESTORIL PO PRN (23:49)
[2019-03-25] MEDS ORDERED: PERCOCET-5 PO PRN (23:49)
[2019-03-25] MEDS ORDERED: MILK OF MAGNESIA PO PRN (23:49)
[2019-03-25] MEDS ORDERED: DULCOLAX PR PRN (23:49)
[2019-03-26] MEDS: CARDIZEM 125 MG in NS 100 ML IV SCH ×2 (00:15→18:42)
[2019-03-26 05:45] LABS: BASO# 0.03 X1000 (0.0-0.2); BASO% 0.4 % (0.0-0.8); EOS# 0.17 X1000 (0.0-0.7); EOS% 2.3 % (0.0-10.0); HEMATOCRIT 33.9 % (37.0-47.0); HEMOGLOBIN 11.3 g/dL (12.0-16.0); IMM GRAN# 0.02 X1000 (0.0-0.04); IMM GRAN% 0.3 % (0.0-0.5); LYMPH# 1.44 X1000 (1.2-3.4); LYMPH% 19.4 % (20.5-51.1); MCHC 33.3 g/dL (33-37); MCV 80.9 FL (81-99); MONO% 8.1 % (1.7-9.3); MPV 9.5 FL (7.4-10.4); NEUT# 5.16 X1000 (1.4-6.5); NEUT% 69.5 % (42.2-75.2); PLT 294 X1000 (130-400); RBC 4.19 XMIL (4.2-5.4); RDW 13.4 % (11.5-14.5); WBC 7.42 X1000 (4.8-10.8)
[2019-03-26 06:06] LABS: AGAP 12; BUN 9 mg/dL (8-22); CALCIUM 9.7 mg/dL (8.8-10.2); CHLORIDE 100 mmol/L (98-107); COSMO 280; CREATININE 0.9 mg/dL (0.5-0.9); ESTIMATED GFR > 60; GLUCOSE 159 mg/dL (70-104); SODIUM 139 mmol/L (136-145); TCO2 27 mmol/L (25-35)
[2019-03-26] MEDS ORDERED: PRILOSEC PO SCH (07:00)
--- NOTE | 2019-03-26 07:14 | EKG Report ---
Test Performed on : 03/26/2019 06:19:19 AM Test Reason : afib Blood Pressure : / mmHG Vent. Rate : 083 BPM Atrial Rate : 086 BPM P-R Int : 000 ms QRS Dur : 088 ms QT Int : 370 ms P-R-T Axes : 000 041 078 degrees QTc Int : 434 ms Atrial fibrillation. Low voltage QRS Cannot rule out Anterior infarct (cited on or before 25-MAR-2019) Abnormal ECG When compared with ECG of 25-MAR-2019 23:21, (Unconfirmed) No significant change was found Confirmed by Reji Tovar MD ([id number]) on 03/27/2019 7:28:40 AM
[2019-03-26] MEDS: PRILOSEC PO SCH (07:42)
[2019-03-26] MEDS: FLONASE NAS SCH ×2 (08:26→08:35)
[2019-03-26] MEDS: ELIQUIS PO SCH ×2 (08:27→20:44)
[2019-03-26] MEDS: NAMENDA PO SCH (08:27)
[2019-03-26] MEDS: RISPERDAL PO SCH ×2 (08:27→20:44)
[2019-03-26] MEDS: CELEXA PO SCH (08:27)
[2019-03-26] MEDS: COZAAR PO SCH (08:27)
[2019-03-26] MEDS: HYDROCHLOROTHIAZIDE PO SCH (08:29)
[2019-03-26] MEDS: TAMBOCOR PO SCH ×2 (08:29→20:44)
[2019-03-26] MEDS: LOPRESSOR PO SCH ×2 (08:29→20:44)
[2019-03-26] MEDS: POTASSIUM CHLORIDE 10% LIQUID PO SCH (08:29)
--- NOTE | 2019-03-26 08:29 | CARDIOLOGY PROGRESS NOTE ---
DATE: 03/26/2019 CHIEF COMPLAINT: Chest pain. SUBJECTIVE: Ms. Nunez had an episode of chest pain last night. This was short lasting and subsided. Her rhythm has not changed. Her telemetry indicates atrial fibrillation with controlled ventricular response. The patient is feeling more comfortable at this time. I am seeing her at about 7:30 in the morning. OBJECTIVE: Vital Signs: Blood pressure is 129/85, temperature 98.1, pulse 78, and respirations 20. General: She is awake, alert, oriented, and in no distress. HEENT: Unremarkable. Chest: Diminished breath sounds diffusely. Heart sounds are irregularly irregular. Abdomen: Soft and nontender. No masses. No hepatomegaly. Extremities: The extremities show good pulses. No edema. Neurological: Follows commands and moves all extremities. She has some pain in the left leg. Ultrasound of the legs was done yesterday and there was no indication of thrombus. IMPRESSION: 1. Patient who presents with atypical chest discomfort. 2. Paroxysmal atrial fibrillation. Patient has this as a new development since the prior admission. She is known to have had paroxysmal atrial fibrillation before and she is status post ablation or pulmonary venous isolation in the past. ADDITIONAL DIAGNOSES: 1. Hypertension. 2. History of deep vein thrombosis in the past. 3. History of dementia. RECOMMENDATIONS: At this time we have put her on flecainide 50 mg plus metoprolol 50 mg twice a day. We are keeping her on IV Cardizem to control her rate. If she does not convert spontaneously within the next 24 to 48 hours we will arrange for a PAPITO guided cardioversion. Following that, we might want to consider an arteriogram if she keeps on having chest pain although my understanding from the son is that she has already had an extensive cardiac evaluation in [place]. We do have some records that we are going to review and decide if a coronary arteriogram would be reasonable. Alternatively, if her heart rate is low and a coronary arteriogram has not been done we might do a coronary CTA to evaluate for coronary artery disease. cc: Jorge Dyer MD
[2019-03-26] MEDS: LANTUS INSULIN SUBQ SCH (08:30)
[2019-03-26] MEDS ORDERED: ASPIRIN PO SCH ×2 (09:00)
[2019-03-26] MEDS ORDERED: LANTUS INSULIN SUBQ SCH (09:00)
--- NOTE | 2019-03-26 10:38 | PROGRESS NOTE ---
DATE: 03/26/2019 SUBJECTIVE: This morning Ms. Nunez refers to be doing a lot better. Still has some generalized fatigue. She said she has not had any chest pain today, but earlier on that she reported mild chest discomfort. OBJECTIVE: Vital signs: Blood pressure 120/80, pulse 116, respirations temperature 97.5 degrees. On general exam, Ms. Nunez is a 74-year-old female. She is in bed, does not seem to be in any distress. Mucosa is pink and moist. Anicteric. Acyanotic. Neck is supple. Chest: Good air entry bilaterally. No crepitations. No rhonchi. Cardiovascular: Irregularly irregular, but rate controlled. No murmurs. Abdomen: Soft. Extremities: No pedal edema. Central Nervous System: Patient is awake, alert, and oriented. DIAGNOSTIC STUDIES: Laboratory data has been reviewed. CBC is unremarkable except for normocytic anemia. Chemistry is also normal. CTA yesterday did show enlarged left lobe of the thyroid. No emboli. ASSESSMENT: 1. Atypical chest pain, most likely related to cardiac arrhythmias. 2. Paroxysmal atrial fibrillation. The patient does have an extensive history of atrial fibrillation status post cardioversion as well as ablation twice in the past. The patient has been evaluated by Cardiology over here. She has been started on flecainide and metoprolol. She is also on Cardizem drip, and there is a plan for electrical cardioversion if chemical fails. 3. Diabetes mellitus, controlled. 4. Hypertension with hypertensive heart disease (ventricular hypertrophy). cc: Felipe Ferrara MD MTDD
[2019-03-26] MEDS: TYLENOL PO PRN ×2 (11:43→17:46)
[2019-03-26] MEDS: BUSPAR PO SCH ×3 (12:05→20:44)
[2019-03-26] MEDS: MELATONIN PO SCH (20:43)
[2019-03-26] MEDS: VESICARE PO SCH (20:44)
[2019-03-27] MEDS: PRILOSEC PO SCH (06:29)
--- NOTE | 2019-03-27 07:17 | EKG Report ---
Test Performed on : 03/27/2019 07:12:44 AM Test Reason : atrial fibrillation Blood Pressure : / mmHG Vent. Rate : 097 BPM Atrial Rate : 267 BPM P-R Int : 000 ms QRS Dur : 090 ms QT Int : 390 ms P-R-T Axes : 000 007 046 degrees QTc Int : 495 ms Atrial fibrillation. Prolonged QT Abnormal ECG When compared with ECG of 26-MAR-2019 06:19, (Unconfirmed) QT has lengthened Confirmed by Sharmin Dobbs MD ([id number]) on 03/31/2019 4:08:35 PM
--- NOTE | 2019-03-27 08:12 | CARDIOLOGY PROGRESS NOTE ---
DATE: 03/27/2019 CHIEF COMPLAINT: Chest discomfort, irregular heartbeat. SUBJECTIVE: Mrs. Nunez is feeling better today. Yesterday, she had some chest discomfort but no more for the past 24 hours. Her cardiac enzymes have been checked twice. They have been negative. Thus far, no ischemic changes noted on EKG that was done this morning at 7:12 in the morning, shows atrial fibrillation with controlled rate and minor nonspecific ST. OBJECTIVE: Vital signs: Her vital signs this morning, blood pressure 119/80, temperature 97.7, pulse 105, respirations 21. General: She is awake, alert, no distress. HEENT: Unremarkable. Chest: Symmetrical breath sounds. I do not hear any rales. Heart: Sounds irregularly irregular. No gallop or murmur. Abdomen: Nontender. Extremities: Show no edema. Neurologic exam: Follows commands, moves all 4 extremities. BLOOD WORK: There is no significant abnormality noted there from yesterday. We have ordered the blood work for this morning. IMPRESSION: 1. Patient with persistent atrial fibrillation. 2. History of mild dementia. 3. Chest pain that sounds atypical. 4. History of deep venous thrombosis in the past. 5. History of hypertension. RECOMMENDATIONS: At this time, we will up-titrate her flecainide to 100 mg twice a day, continue metoprolol, Eliquis. If she does not covert by tomorrow morning, we will go ahead and proceed with cardioversion. The benefits, risks, and complications were discussed with her son and with her. I will do a PAPITO before the cardioversion to further risk stratify her regarding future thromboembolic events. In addition, I do not have a clear grasp on for how long she may have been in atrial fibrillation prior to her presentation. Further intervention including the possibility of doing a coronary arteriogram will be discussed after the cardioversion tomorrow. cc: Jorge Dyer MD
[2019-03-27 08:17] LABS: AGAP 11; BUN 11 mg/dL (8-22); CALCIUM 9.3 mg/dL (8.8-10.2); CHLORIDE 99 mmol/L (98-107); COSMO 278; CREATININE 0.8 mg/dL (0.5-0.9); ESTIMATED GFR > 60; GLUCOSE 143 mg/dL (70-104); POTASSIUM 3.9 mmol/L (3.5-5.1); SODIUM 138 mmol/L (136-145); TCO2 28 mmol/L (25-35)
[2019-03-27] MEDS: COZAAR PO SCH (08:48)
[2019-03-27] MEDS: BUSPAR PO SCH ×2 (08:48→20:37)
[2019-03-27] MEDS: HYDROCHLOROTHIAZIDE PO SCH (08:48)
[2019-03-27] MEDS: TAMBOCOR PO SCH ×2 (08:48→20:38)
[2019-03-27] MEDS: CELEXA PO SCH (08:49)
[2019-03-27] MEDS: NAMENDA PO SCH (08:49)
[2019-03-27] MEDS: FLONASE NAS SCH ×2 (08:50→08:56)
[2019-03-27] MEDS: LANTUS INSULIN SUBQ SCH (08:50)
[2019-03-27] MEDS: POTASSIUM CHLORIDE 10% LIQUID PO SCH (08:51)
[2019-03-27] MEDS: RISPERDAL PO SCH ×2 (08:51→20:38)
[2019-03-27] MEDS: LOPRESSOR PO SCH ×2 (08:51→20:38)
--- NOTE | 2019-03-27 10:57 | PROGRESS NOTE ---
DATE: 03/27/2019 SUBJECTIVE: This morning, Ms. Nunez refers to be doing okay. No new complaints. Her sister was at the bedside at the time of the encounter. OBJECTIVE: Vital Signs: Blood pressure is 112/86, pulse of 103, respirations are 16, temperature is 97.5 degrees. General Examination: Ms. Nunez is a 74-year-old, elderly, female. She is in bed. No distress. HEENT: Mucosa is pink and moist. Anicteric. Acyanotic. Neck: Supple. Chest: Clear to auscultation. No crepitations. No rhonchi. Cardiovascular: Irregularly irregular. No murmurs, no rubs, no gallops. Abdomen: Soft, nontender. Bowel sounds present. Extremities: No pedal edema. BENEFITS REPRESENTATIVE: The patient is awake, alert, and oriented. Follows basic commands. Laboratory Data: Chemistry is completely normal. Troponins have been done 3 times and all negative. Telemonitoring continues to show atrial fibrillation. ASSESSMENT: 1. Atypical chest pain, presumably related to cardiac arrhythmias. 2. Paroxysmal atrial fibrillation. The patient has been started on flecainide and metoprolol. She is still on a Cardizem drip at a lower rate. However, she still maintains in atrial fibrillation. There is a plan for cardioversion tomorrow if no response. 3. Diabetes mellitus, controlled. 4. Hypertension with hypertensive heart disease. 5. History of Alzheimer's dementia. cc: Felipe Ferrara MD
--- NOTE | 2019-03-27 15:48 | EKG Report ---
Test Performed on : 03/27/2019 3:41:03 PM Test Reason : Afib Blood Pressure : / mmHG Vent. Rate : 076 BPM Atrial Rate : 127 BPM P-R Int : 000 ms QRS Dur : 092 ms QT Int : 448 ms P-R-T Axes : 000 -02 057 degrees QTc Int : 504 ms Atrial fibrillation. Possible Inferior infarct , age undetermined Abnormal ECG When compared with ECG of 27-MAR-2019 07:12, (Unconfirmed) Borderline criteria for Inferior infarct are now present Confirmed by Sharmin Dobbs MD ([id number]) on 03/31/2019 4:09:13 PM
[2019-03-27] MEDS: TYLENOL PO PRN (18:30)
[2019-03-27] MEDS: CARDIZEM 125 MG in NS 100 ML IV SCH (20:30)
[2019-03-27] MEDS: MELATONIN PO SCH (20:37)
[2019-03-27] MEDS: VESICARE PO SCH (20:38)
[2019-03-27] MEDS: ELIQUIS PO SCH (21:51)
[2019-03-27] MEDS: ADVAIR 100/50 DISKUS INH SCH (22:16)
[2019-03-28] MEDS: LOPRESSOR PO SCH ×3 (05:56→20:47)
[2019-03-28] MEDS: PRILOSEC PO SCH ×2 (05:56→06:07)
[2019-03-28] MEDS: COZAAR PO SCH ×2 (05:56→09:07)
[2019-03-28] MEDS: BUSPAR PO SCH ×3 (05:56→20:47)
[2019-03-28] MEDS: CELEXA PO SCH ×2 (05:57→09:07)
[2019-03-28] MEDS: RISPERDAL PO SCH ×3 (05:57→20:47)
[2019-03-28] MEDS: TAMBOCOR PO SCH ×3 (05:57→20:47)
[2019-03-28] MEDS: NAMENDA PO SCH ×2 (05:57→09:09)
[2019-03-28] MEDS: HYDROCHLOROTHIAZIDE PO SCH ×2 (05:57→09:08)
[2019-03-28] MEDS: ELIQUIS PO SCH ×3 (05:57→20:46)
--- NOTE | 2019-03-28 06:43 | EKG Report ---
Test Performed on : 03/28/2019 06:14:41 AM Test Reason : atrial fibrillation Blood Pressure : / mmHG Vent. Rate : 092 BPM Atrial Rate : 416 BPM P-R Int : 000 ms QRS Dur : 096 ms QT Int : 420 ms P-R-T Axes : 000 015 075 degrees QTc Int : 519 ms Atrial fibrillation. Low voltage QRS Prolonged QT Abnormal ECG When compared with ECG of 27-MAR-2019 15:41, (Unconfirmed) Borderline criteria for Inferior infarct are no longer present Confirmed by Sharmin Dobbs MD ([id number]) on 03/31/2019 4:09:40 PM
[2019-03-28] MEDS ORDERED: XYLOCAINE 2% VISCOUS ONE (08:20)
[2019-03-28] MEDS ORDERED: XYLOCAINE 4% TOPICAL SOLUTION ONE (08:20)
[2019-03-28] MEDS ORDERED: SODIUM CHLORIDE 0.9% 10 ML ONE (08:20)
[2019-03-28] MEDS ORDERED: DIPRIVAN 1% ONE (08:22)
[2019-03-28] MEDS ORDERED: ATROPINE ONE (08:22)
[2019-03-28] MEDS ORDERED: XYLOCAINE-MPF 2% ONE (08:22)
[2019-03-28] MEDS: LANTUS INSULIN SUBQ SCH (08:33)
[2019-03-28] MEDS ORDERED: NS 1,000 ML ONE (08:59)
[2019-03-28] MEDS: FLONASE NAS SCH (09:08)
--- NOTE | 2019-03-28 10:02 | ECHO REPORT ---
ORDER DATE: 03/28/2019 PHYSICIAN: Dr. Dyer CLINICAL INDICATIONS: Patient with persistent atrial fibrillation. PROCEDURE: Transesophageal echocardiography DESCRIPTION: The patient was consented the day before the procedure. She was brought to the cardiac director of laboratory operations in the fasting state. She took her morning medicines. The throat was anesthetized with Hurricaine and viscous Xylocaine. She received IV propofol under the Anesthesia Services of Dr. Loredo. The esophagus was intubated without difficulty. Multiple views of the cardiac structure were obtained. SUMMARY OF MAIN FINDINGS: The left atrium and appendage are well visualized. They are free of thrombus. No spontaneous echo contrast noted. The flow velocities within the appendage are normal. The interatrial septum appears to be intact. There is no obvious PFO. Tricuspid valve shows mild degree of regurgitation. The right atrium and right ventricle appear to be normal. Pulmonic valve is normal. The aortic valve has 3 cusps. They open normally. Color flow mapping unremarkable. The aortic root is not dilated. No calcification is noted. The left ventricle shows normal size and function. The mitral valve is unremarkable with a mild to moderate degree of regurgitation. The pulmonary venous flow shows its expected pattern for atrial fibrillation with a prominent diastolic wave. Descending thoracic aorta shows no evidence of debris or ulcerations. No significant calcification of the aorta noted. There is no pericardial effusion, mass and no thrombus. SUMMARY: This transthoracic echocardiogram shows no evidence of thrombus within the left-sided chambers. Cardioversion can be performed with a low risk of peripheral embolization or thrombo-embolic complications. cc: Jorge Dyer MD MTDGeorges
--- NOTE | 2019-03-28 10:10 | CARDIAC CATH REPORT ---
DATE: 03/28/2019 PROCEDURE: Direct current cardioversion. INDICATIONS: Patient with persistent atrial fibrillation. The patient was consented for this procedure on March 27. A transesophageal echocardiogram was carried out first under the Anesthesia Services of Dr. Loredo. No thrombi were noted. The cardioversion was deemed to be safe. The pads were positioned in anteroposterior location. The patient received first a single synchronized countershock to the chest cage consisting of 75 ta per second. She did not convert. Then, still under the influence of anesthesia, we performed a second shock, this time with energy of 120 ta per second. At this time, she did convert from atrial fibrillation into sinus rhythm. She gradually woke up from the effects of anesthesia. SUMMARY: This was a successful cardioversion from atrial fibrillation into sinus rhythm. The patient tolerated the procedure well without complication. RECOMMENDATIONS: The patient is to be maintained at this time on Flecainide 100 mg twice a day, metoprolol 50 twice a day and Eliquis 5 mg twice a day. We will follow her at the office. We will consider referral to Electrophysiology Team because she has had already 2 previous pulmonary vein isolation procedures. cc: Jorge Dyer MD MTDD
--- NOTE | 2019-03-28 11:58 | EKG Report ---
Test Performed on : 03/28/2019 11:49:06 AM Test Reason : S/P CVN Blood Pressure : / mmHG Vent. Rate : 064 BPM Atrial Rate : 064 BPM P-R Int : 226 ms QRS Dur : 104 ms QT Int : 478 ms P-R-T Axes : 060 -12 043 degrees QTc Int : 493 ms Sinus rhythm. with 1st degree AV block. Possible Anterior infarct , age undetermined Abnormal ECG When compared with ECG of 28-MAR-2019 06:14, (Unconfirmed) Sinus rhythm. has replaced Atrial fibrillation. Confirmed by Rinku SALAZAR, MPaola Thomas ([id number]) on 03/31/2019 4:10:08 PM
[2019-03-28] MEDS: POTASSIUM CHLORIDE 10% LIQUID PO SCH (13:23)
--- NOTE | 2019-03-28 16:20 | PROGRESS NOTE ---
DATE: 03/28/2019 SUBJECTIVE: Today Ms. Nunez referred to be doing okay. She was awaiting to go for a PAPITO with cardioversion. OBJECTIVE: Vital signs: Blood pressure is 119/77, pulse of 90, respirations 70, temperature 97.8 degrees. General: Ms. Nunez is a 74-year-old female. She was in bed, no distress. Mucosa is pink and moist. Anicteric. Acyanotic. Neck: Supple. Chest: Clear to auscultation. No crepitations. No rhonchi. Cardiovascular: Irregularly irregular but no murmurs, no rubs, no gallops. GI: Abdomen is soft, nontender. Bowel sounds present. Extremities: No pedal edema. FLEXOGRAPHIC PRESS PLATE SETTER: Patient was awake, alert, and oriented. There is no focal neurological deficit. LAB WORK: There is no lab work for this morning. Glucose on glucose check was 164. ASSESSMENT: 1. Atypical chest pain, presumably related to cardiac arrhythmias, improved. 2. Paroxysmal atrial fibrillation. Patient is pending a PAPITO with electrical cardioversion. 3. Diabetes mellitus, controlled. 4. Hypertension with hypertensive heart disease. 5. History of Alzheimer's dementia. PLAN: In general, I feel Ms. Nunez is doing remarkably okay. She is pending a PAPITO with cardioversion today. Subsequently, we will plan for her discharge hopefully later on today or tomorrow. I also understand Ms. Nunez is from an assisted living which means she will need to be evaluated by that facility before she can be discharged. I am not sure if that will happen tomorrow. cc: Felipe Ferrara MD
[2019-03-28] MEDS: ADVAIR 100/50 DISKUS INH SCH (18:00)
--- NOTE | 2019-03-28 18:45 | Extremity Venous Study ---
PROCEDURE NAME: Venous U/S Bilateral Legs - 03/25/2019 REFERRING PHYSICIAN: STERLING Kidd INTERPRETING PHYSICIAN: Dr. Paris NATURAL RESOURCES MANAGER: Suzanne INDICATIONS: The patient has been complaining of left leg pain. Apparently has a history of a DVT. FINDINGS: Bilateral lower extremity venous images accomplished. The common femoral, superficial femoral, deep femoral, popliteal, posterior tibial, peroneal, and greater saphenous are imaged bilaterally. Doppler is used to evaluate the veins for spontaneity, phasicity, respiratory excursion, distal augmentation. All veins are compressible. No intraluminal clot is seen. INTERPRETATION: No evidence of deep or superficial venous thrombosis in either lower extremity in the veins identified. cc: MD Karen Richardson PA
[2019-03-28] MEDS: TYLENOL PO PRN (19:17)
[2019-03-28] MEDS: MELATONIN PO SCH (20:46)
[2019-03-28] MEDS: VESICARE PO SCH (20:47)
[2019-03-29] MEDS: PRILOSEC PO SCH (06:10)
[2019-03-29] MEDS: ADVAIR 100/50 DISKUS INH SCH ×3 (06:32→19:51)
[2019-03-29] MEDS: LOPRESSOR PO SCH ×2 (08:44→20:42)
[2019-03-29] MEDS: POTASSIUM CHLORIDE 10% LIQUID PO SCH (08:44)
[2019-03-29] MEDS: RISPERDAL PO SCH ×2 (08:44→20:42)
[2019-03-29] MEDS: LANTUS INSULIN SUBQ SCH (08:44)
[2019-03-29] MEDS: CELEXA PO SCH (08:44)
[2019-03-29] MEDS: BUSPAR PO SCH ×2 (08:44→20:41)
[2019-03-29] MEDS: TAMBOCOR PO SCH ×2 (08:44→20:42)
[2019-03-29] MEDS: HYDROCHLOROTHIAZIDE PO SCH (08:44)
[2019-03-29] MEDS: NAMENDA PO SCH (08:44)
[2019-03-29] MEDS: ELIQUIS PO SCH ×2 (08:44→20:42)
[2019-03-29] MEDS: COZAAR PO SCH (08:45)
[2019-03-29] MEDS: FLONASE NAS SCH (08:45)
[2019-03-29] MEDS: TYLENOL PO PRN (11:51)
--- NOTE | 2019-03-29 12:51 | PROGRESS NOTE ---
DATE: 03/29/2019 SUBJECTIVE: This morning, Ms. Nunez refers to be doing a lot better. She underwent a PAPITO with cardioversion yesterday and since then she has been in sinus rhythm. OBJECTIVE: Vital signs: Blood pressure is 140/72, pulse of 75 respirations 16, temperature 98 degrees. General: Ms. Nunez is a 74-year-old female. She is in bed. No distress. Mucosa is pink and moist. Anicteric. Acyanotic. Neck: Supple. Chest: Good air entry bilateral. There were no crepitations. No rhonchi. Cardiovascular: Regular rate and rhythm. No murmurs, no rubs, no gallops. Abdomen: Soft, nontender. Bowel sounds present. Extremities: No pedal edema. MORTGAGE SERVICING SPECIALIST: Patient is awake, alert, oriented. There is no focal neurological deficit. LABORATORY DATA: Glucose is 155. I's and O's, urine output was about 2660. ASSESSMENT: 1. Atypical chest pain on presentation secondary to cardiac arrhythmias. Resolved. 2. Paroxysmal atrial fibrillation. Patient is status post PAPITO with electrical cardioversion. She is currently in sinus rhythm. She is also on flecainide and metoprolol. 3. Diabetes mellitus controlled. 4. Hypertension with hypertensive heart disease. 5. History of Alzheimer dementia. 6. Generalized weakness and deconditioning. Physical therapy has been consulted. PLAN: Ms. Nunez seems to be doing a lot better. She is currently in sinus rhythm. She underwent PAPITO with cardioversion yesterday and this morning she feels a lot better. We are going to remove the Dominguez catheter. Encourage her to sit up 2 times at least in a chair and will be pending further evaluation by PT. I have discussed this plan with her and I have also discussed it with her nurse. cc: Felipe Ferrara MD
--- NOTE | 2019-03-29 19:53 | CARDIOLOGY PROGRESS NOTE ---
DATE: 03/29/2019 SUBJECTIVE: Ms. Nunez has no complaints. She is not having any palpitations. OBJECTIVE: Afebrile. Heart rate 72, blood pressure 136/81. Generally she is in no acute distress. Cardiovascular: She sounds to be in a regular rate and rhythm. She has no murmurs, no S3. No lower extremity edema. Her telemetry by my review currently shows sinus rhythm. Her chest is clear bilaterally. She has no increased work of breathing. Her abdomen is soft, nontender. LABORATORY DATA: I have no new laboratory data today. ASSESSMENT AND PLAN: Ms. Nunez is a 74-year-old female who underwent transesophageal echocardiogram and cardioversion yesterday. She had successful conversion to sinus rhythm. She is maintained on Eliquis as well as flecainide and metoprolol. I do not have any acute recommendations. Please contact us if we can be of further assistance with this patient. cc: Keegan Pabon MD
[2019-03-29] MEDS: VESICARE PO SCH (20:42)
[2019-03-29] MEDS: MELATONIN PO SCH (20:42)
[2019-03-30] MEDS: PRILOSEC PO SCH (06:06)
[2019-03-30] MEDS: ADVAIR 100/50 DISKUS INH SCH ×2 (07:55→19:30)
[2019-03-30] MEDS: NAMENDA PO SCH (08:12)
[2019-03-30] MEDS: CELEXA PO SCH (08:12)
[2019-03-30] MEDS: LOPRESSOR PO SCH ×2 (08:12→20:40)
[2019-03-30] MEDS: COZAAR PO SCH (08:12)
[2019-03-30] MEDS: HYDROCHLOROTHIAZIDE PO SCH (08:12)
[2019-03-30] MEDS: BUSPAR PO SCH ×2 (08:12→20:40)
[2019-03-30] MEDS: ELIQUIS PO SCH ×2 (08:12→20:40)
[2019-03-30] MEDS: POTASSIUM CHLORIDE 10% LIQUID PO SCH (08:13)
[2019-03-30] MEDS: FLONASE NAS SCH (08:13)
[2019-03-30] MEDS: LANTUS INSULIN SUBQ SCH (08:16)
[2019-03-30] MEDS: RISPERDAL PO SCH ×2 (08:19→20:40)
[2019-03-30] MEDS: TAMBOCOR PO SCH ×2 (08:19→20:40)
--- NOTE | 2019-03-30 15:39 | PROGRESS NOTE ---
DATE: 03/30/2019 SUBJECTIVE: This morning Ms. Nunez refers to be doing okay. No new complaints. Heart rate continues to be in sinus and under rate control. OBJECTIVE: Vital signs: Blood pressure is 117/61, pulse of 57, respirations 18, temperature 97.4 degrees. General: Ms. Nunez is a 74-year-old female. She is in bed. No distress. HEENT: Mucosa is pink and moist. Anicteric. Acyanotic. Neck: Supple. Chest: Good air entry bilaterally. No crepitations. No rhonchi. No accessory muscle use. Cardiovascular: Regular rate and rhythm. Abdomen: Soft, nontender. Bowel sounds present. Extremities: No pedal edema. Distal pulses present. PATROLLER: Patient is awake, alert, and oriented. There is no focal neurological deficit. LABORATORY DATA: Glucose is 155. ASSESSMENT: 1. Atypical chest pain on presentation secondary to cardiac arrhythmias, improved. 2. Paroxysmal atrial fibrillation. Patient is status post PAPITO with electrical cardioversion. She is currently in sinus and rate controlled. She is on flecainide and metoprolol and Eliquis for stroke prophylaxis. 3. Diabetes mellitus, controlled. 4. Hypertension with hypertensive heart disease, noted. 5. History of Alzheimer's dementia. Patient is stable. 6. Generalized weakness and deconditioning. The patient has been evaluated by physical therapy since yesterday. She was noted to only do 2 feet with maximum assist. 7. Disposition plan is possible rehab placement. cc: Felipe Ferrara MD
[2019-03-30] MEDS: VESICARE PO SCH (20:40)
[2019-03-30] MEDS: MELATONIN PO SCH (20:41)
[2019-03-30] MEDS: TYLENOL PO PRN (23:01)
[2019-03-31] MEDS: PRILOSEC PO SCH ×2 (05:37→06:12)
[2019-03-31 05:41] LABS: BASO# 0.02 X1000 (0.0-0.2); BASO% 0.2 % (0.0-0.8); EOS# 0.13 X1000 (0.0-0.7); EOS% 1.2 % (0.0-10.0); HEMATOCRIT 28.7 % (37.0-47.0); HEMOGLOBIN 9.3 g/dL (12.0-16.0); IMM GRAN# 0.02 X1000 (0.0-0.04); IMM GRAN% 0.2 % (0.0-0.5); LYMPH# 1.21 X1000 (1.2-3.4); LYMPH% 11.2 % (20.5-51.1); MCH 26.3 PG (27-31); MCHC 32.4 g/dL (33-37); MCV 81.1 FL (81-99); MONO# 1.23 X1000 (0.11-0.59); MONO% 11.3 % (1.7-9.3); MPV 9.9 FL (7.4-10.4); NEUT# 8.23 X1000 (1.4-6.5); NEUT% 75.9 % (42.2-75.2); PLT 254 X1000 (130-400); RBC 3.54 XMIL (4.2-5.4); RDW 13.1 % (11.5-14.5); WBC 10.84 X1000 (4.8-10.8)
[2019-03-31 06:05] LABS: AGAP 11; ALBUMIN 3.1 g/dL (3.5-5.0); BUN 17 mg/dL (8-22); CHLORIDE 94 mmol/L (98-107); COSMO 271; CREATININE 0.9 mg/dL (0.5-0.9); ESTIMATED GFR > 60; GLUCOSE 180 mg/dL (70-104); PHOSPHORUS 3.3 mg/dL (2.7-4.5); POTASSIUM 3.6 mmol/L (3.5-5.1); SODIUM 132 mmol/L (136-145); TCO2 27 mmol/L (25-35)
[2019-03-31] MEDS: ADVAIR 100/50 DISKUS INH SCH ×2 (08:03→19:32)
[2019-03-31] MEDS: POTASSIUM CHLORIDE 10% LIQUID PO SCH (09:11)
[2019-03-31] MEDS: COZAAR PO SCH (09:11)
[2019-03-31] MEDS: HYDROCHLOROTHIAZIDE PO SCH (09:11)
[2019-03-31] MEDS: BUSPAR PO SCH ×2 (09:11→20:28)
[2019-03-31] MEDS: TAMBOCOR PO SCH ×2 (09:11→20:29)
[2019-03-31] MEDS: NAMENDA PO SCH (09:11)
[2019-03-31] MEDS: RISPERDAL PO SCH ×2 (09:11→20:28)
[2019-03-31] MEDS: CELEXA PO SCH (09:12)
[2019-03-31] MEDS: LOPRESSOR PO SCH ×2 (09:12→20:29)
[2019-03-31] MEDS: ELIQUIS PO SCH ×2 (09:12→20:29)
[2019-03-31] MEDS: FLONASE NAS SCH ×3 (09:12→19:08)
[2019-03-31] MEDS: LANTUS INSULIN SUBQ SCH (09:15)
--- NOTE | 2019-03-31 10:34 | PROGRESS NOTE ---
DATE: 03/31/2019 SUBJECTIVE: This morning, Ms. Nunez refers to be doing okay. No new complaints except that she feels cold. OBJECTIVE: Vital Signs: Blood pressure is 128/98, pulse of 70, respirations are 16, temperature is 98 degrees. General Examination: Ms. Nunez is a 74-year-old, female. She is in bed. No distress. HEENT: Mucosa is pink and moist. Anicteric. Acyanotic. Neck: Supple. Chest: Good air entry bilaterally. There were no crepitations. No rhonchi. Cardiovascular: Regular rate and rhythm. No murmurs, no rubs, no gallops. GI: Abdomen is soft. Distended but nontender. Extremities: No pedal edema. Distal pulses present. ELECTRICAL AND INSTRUMENTATION MECHANIC: The patient is awake, alert, and oriented. There is no focal neurological deficit. Laboratory Data: CBC is reviewed and, for the most part, unremarkable. Chemistry is also reviewed. Sodium is 132. Rest of chemistry is unremarkable. Current Medications: Have all been reviewed. No new changes. Physical therapy note from 3 days ago has also been reviewed. Patient was only able to do about 2 feet with max assist. ASSESSMENT: 1. Atypical chest pain on presentation secondary to cardiac arrhythmias, improved. 2. Paroxysmal atrial fibrillation. Patient is status post transesophageal echocardiogram with electrical cardioversion. She is currently in sinus rhythm with rate control. The patient is on flecainide, metoprolol, and also Eliquis for stroke prophylaxis. 3. Diabetes mellitus, controlled on insulin. 4. Hypertension with hypertensive heart disease, stable. 5. History of Alzheimer's dementia. 6. Generalized weakness and deconditioning. Patient will continue to be needing physical therapy. There is a plan for rehab placement. We are pending final arrangements. cc: Felipe Ferrara MD
--- NOTE | 2019-03-31 18:22 | CARDIOLOGY PROGRESS NOTE ---
DATE: 03/31/2019 CHIEF COMPLAINT: Irregular heartbeat, atypical chest pain. SUBJECTIVE: The patient has not had any further complaints. Her telemetry indicates presence of sinus rhythm. OBJECTIVE: Vital signs: Blood pressure 145/92, temperature 97.4 degrees, pulse 72. General: The patient is awake, alert and oriented, in no acute distress. HEENT: Unremarkable. Chest: Clear to auscultation and percussion. Heart: Heart sounds are regular and rhythmic. No gallop or murmur. Abdomen: Nontender. Extremities: No edema. Neurologic: Follows commands. Moves all 4 extremities. Laboratory data: Sodium 132, potassium 3.6, BUN 13, creatinine 0.9. Hemoglobin 9.3, hematocrit 28.7. IMPRESSION: 1. Patient has maintained sinus rhythm after cardioversion. She had paroxysmal atrial fibrillation on presentation. 2. Atypical chest pain. This is totally nonspecific. 3. History of hypertension. 4. History of dementia. 5. History of deep vein thrombosis. RECOMMENDATIONS: At this time, the patient will be continued on present medications. She may be discharged to rehabilitation and follow up with our office. At the time of discharge, she needs to be maintained on metoprolol 50 mg twice a day, flecainide 100 mg twice a day, and apixaban 5 mg twice a day. cc: Jorge Dyer MD
[2019-03-31] MEDS: MELATONIN PO SCH (20:28)
[2019-03-31] MEDS: VESICARE PO SCH (20:29)
[2019-04-01] MEDS: PRILOSEC PO SCH (06:20)
[2019-04-01] MEDS: ADVAIR 100/50 DISKUS INH SCH ×2 (08:18→19:29)
[2019-04-01] MEDS: CELEXA PO SCH (09:25)
[2019-04-01] MEDS: ELIQUIS PO SCH ×2 (09:25→21:52)
[2019-04-01] MEDS: NAMENDA PO SCH (09:25)
[2019-04-01] MEDS: BUSPAR PO SCH ×2 (09:25→21:52)
[2019-04-01] MEDS: LOPRESSOR PO SCH ×2 (09:25→21:52)
[2019-04-01] MEDS: HYDROCHLOROTHIAZIDE PO SCH (09:25)
[2019-04-01] MEDS: COZAAR PO SCH (09:26)
[2019-04-01] MEDS: POTASSIUM CHLORIDE 10% LIQUID PO SCH (09:26)
[2019-04-01] MEDS: RISPERDAL PO SCH ×2 (09:26→21:52)
[2019-04-01] MEDS: TAMBOCOR PO SCH ×2 (09:26→21:51)
[2019-04-01] MEDS: LANTUS INSULIN SUBQ SCH (09:26)
[2019-04-01] MEDS: FLONASE NAS SCH (13:01)
--- NOTE | 2019-04-01 16:29 | PROGRESS NOTE ---
DATE: 04/01/2019 SUBJECTIVE: This morning, Ms. Nunez refers to be doing fairly okay. The son was at the bedside at the time of the encounter. We are still pending [facility] approval for rehab placement. OBJECTIVE: Vital Signs: Blood pressure is 132/61, pulse of 63, respirations 20, temperature is 98.3 degrees. General: Ms. Nunez is a 74-year-old female. She is in bed, in no distress. HEENT: Mucosa is pink and moist. Anicteric. Acyanotic. Neck: Supple. Chest: Clear to auscultation. No crepitations. No rhonchi. Cardiovascular: Regular rate and rhythm. Abdomen: Soft, nontender. Bowel sounds present. Extremities: No pedal edema. Central Nervous System: The patient is awake, alert, and oriented. There is no focal neurological deficit. LABORATORY DATA: Glucose was 145 this morning. CURRENT MEDICATIONS: The patient's current medications have all been reviewed and no changes. ASSESSMENT AND PLAN: 1. Atypical chest pain on presentation secondary to cardiac arrhythmias, improved. 2. Paroxysmal atrial fibrillation. The patient is status post transesophageal echocardiogram with electrical cardioversion. She is currently in sinus rhythm. We will continue with flecainide, metoprolol. 3. Eliquis anticoagulation therapy for stroke prophylaxis. 4. Diabetes mellitus, controlled on insulin. 5. Hypertension with hypertensive heart disease, stable. 6. History of Alzheimer's dementia. 7. Generalized weakness and deconditioning. The patient is getting physical therapy, and there is a plan to get her to rehab. cc: Felipe Ferrara MD
[2019-04-01] MEDS: MELATONIN PO SCH (21:52)
[2019-04-01] MEDS: VESICARE PO SCH (21:52)
[2019-04-02] MEDS: TYLENOL PO PRN ×2 (05:10→11:14)
[2019-04-02] MEDS: PRILOSEC PO SCH (06:13)
[2019-04-02] MEDS: ADVAIR 100/50 DISKUS INH SCH (07:55)
[2019-04-02] MEDS: POTASSIUM CHLORIDE 10% LIQUID PO SCH (09:21)
[2019-04-02] MEDS: COZAAR PO SCH (09:21)
[2019-04-02] MEDS: CELEXA PO SCH (09:22)
[2019-04-02] MEDS: HYDROCHLOROTHIAZIDE PO SCH (09:22)
[2019-04-02] MEDS: TAMBOCOR PO SCH (09:22)
[2019-04-02] MEDS: NAMENDA PO SCH (09:22)
[2019-04-02] MEDS: LOPRESSOR PO SCH (09:22)
[2019-04-02] MEDS: BUSPAR PO SCH (09:22)
[2019-04-02] MEDS: RISPERDAL PO SCH (09:22)
[2019-04-02] MEDS: ELIQUIS PO SCH (09:22)
[2019-04-02] MEDS: FLONASE NAS SCH (09:23)
[2019-04-02] MEDS: LANTUS INSULIN SUBQ SCH (09:23)
--- NOTE | 2019-04-02 11:12 | Diag Imaging Result Doc PS360 ---
EXAM: KUB ABDOMEN 04/02/2019 HISTORY: SBO TECHNIQUE: KUB COMMENT: There is a fair amount of stool in the left colon and rectum. This has diminished slightly since the previous study of 08/06/2017. The stomach and small bowel are not distended. There has been cholecystectomy. There is no evidence of organomegaly or mass. IMPRESSION: Constipation. Electronically signed by Harley Moore 04/02/2019 11:09 AM
[2019-04-02 12:16] VITALS: BP 121/64
[2019-04-02] MEDS ORDERED: MIRALAX PO SCH (14:30)
--- NOTE | 2019-04-02 15:00 | DISCHARGE SUMMARY ---
ADMISSION DATE: 03/25/2019 DISCHARGE DATE: 04/02/2019 DISPOSITION: [facility]. CONSULTATIONS DURING THIS ADMISSION: Cardiology was consulted. Patient was seen by Dr. Dyer. INVASIVE PROCEDURES DONE DURING THIS ADMISSION: A PAPITO with cardioversion was done. IMAGING STUDIES OF SIGNIFICANCE: A chest x-ray showed likely mild atelectasis. Lower extremity Doppler studies were negative for DVT. A CT of the lung was negative for pulmonary emboli. There was a trace of pleural fluid. A KUB this morning showed constipation. ADMISSION DIAGNOSES: 1. Chest pain. 2. Atrial fibrillation. 3. Hypertension. 4. Diabetes mellitus. DIAGNOSES AT THE TIME OF DISCHARGE: 1. Atypical chest pain on presentation secondary to cardiac tachyarrhythmia, which has resolved. 2. Paroxysmal atrial fibrillation. Patient is status post transesophageal echocardiogram with electrical cardioversion. Patient is currently in sinus. 3. Diabetes mellitus, controlled on insulin. 4. Eliquis anticoagulation therapy for stroke prophylaxis. 5. Hypertension with hypertensive heart disease. 6. History of Alzheimer's dementia. 7. Generalized weakness and deconditioning. Physical therapy was involved. 8. Constipation. DISCHARGE MEDICATIONS: 1. Citalopram 20 mg p.o. at bedtime. 2. Metoprolol 50 mg b.i.d. 3. VESIcare 5 mg at bedtime. 4. Buspirone 5 mg b.i.d. 5. Hydrochlorothiazide 25 mg p.o. daily. 6. Melatonin 10 mg p.o. at bedtime. 7. Memantine 5 mg p.o. daily. 8. Risperidone 1 mg b.i.d. 9. Aspirin 325 p.o. daily. 10. Cozaar 100 mg p.o. daily. 11. Amlodipine 5 mg b.i.d. 12. Omeprazole 20 mg p.o. daily. 13. Insulin 22 units subcutaneous in the morning. 14. Apixaban 5 mg b.i.d. 15. Flecainide 100 mg b.i.d. 16. Milk of magnesia. PRESENTING COMPLAINT: Right-sided chest pain, three-day history of progressively getting worse. HISTORY OF PRESENTING COMPLAINT: Ms. Nunez is a 74-year-old, female who has a history of diabetes mellitus, hypertension, and chronic atrial fibrillation with multiple ablations and cardioversions in the past. Came to the emergency department because of chest discomfort. Patient was found to be in atrial fibrillation with RVR. She was subsequently admitted for further medical care. HOSPITAL COURSE: Ms. Nunez was admitted to the medical floor. Was initially seen and all her comorbidities were addressed. Her atrial fibrillation was initially treated with IV Cardizem drip. However, that did not improve so cardiology recommended cardioversion, which was successfully done by Dr. Dyer. Please refer to the details of the procedure note in the chart. Postoperatively, Ms. Nunez continues to feeling a lot better. No more chest pain. No shortness of breath. Heart rate continues to be in sinus rhythm and under control. Ms. Nunez was subsequently evaluated by the nurse from [facility]. However, she was physically weak so rehab was recommended. This morning, Ms. Nunez refers to be fairly stable. No new complaints. She has been accepted to [facility]. She is going to go in stable condition and she will follow up with her primary care doctor (Dr. Dave Mcdaniel) and Dr. Dyer. All the discharge instructions were discussed with her and the son who was also at the bedside at the time of the encounter. Time spent for discharge is 37 minutes. cc: MD Dave Suero MD Luis N. Villanueva, MD
== END 2019-04-02 17:42 | DRG 310 ==
LOC: SUPCPDRO → EDIPHOLD 05:55 → ED 05:55 → 3S 13:19 → 4N 03-31 23:07
PROVIDERS: ATTEND Internal Medicine